=== PATIENT | female | born 1970 | race Caucasian/White ===

== ENCOUNTER 2020-03-25 12:43 | Emergency (ER) | payer BC, OTHER ==
[~2020-03-25] VITALS: Ht 170 cm; Wt 74.8 kg
[~2020-03-25 12:43] MED LIST: OMEP20CA18 PO
[2020-03-25] MEDS ORDERED: ALBU90AE2 (13:07)
[2020-03-25] MEDS ORDERED: METH4TAB10 (13:07)
[2020-03-25 13:14] VITALS: BP 123/69
[2020-03-25 13:14] LABS: BASOPHILS % (AUTO) 0 % (0-10); EOSINOPHILS # (AUTO) 0.2 10^3/uL (0.0-0.3); EOSINOPHILS % (AUTO) 2 % (0-10); HEMATOCRIT 34 % (35-52); HEMOGLOBIN 10.8 G/DL (11.5-16.0); LYMPHOCYTES # (AUTO) 2.3 X 10^3 (1.0-4.0); LYMPHOCYTES % (AUTO) 28 % (12-44); MEAN CORPUSCULAR HEMOGLOBIN 25 PG (25-34); MEAN CORPUSCULAR HGB CONC 32 G/DL (32-36); MEAN CORPUSCULAR VOLUME 78 FL (80-99); MEAN PLATELET VOLUME 8.6 FL (7.4-10.4); MONOCYTES # (AUTO) 0.6 X 10^3 (0.0-1.0); MONOCYTES % (AUTO) 8 % (0-12); NEUTROPHILS % (AUTO) 62 % (42-75); PLATELET COUNT 547 10^3/uL (130-400); RED CELL DISTRIBUTION WIDTH 18.1 % (10.0-14.5); WHITE BLOOD COUNT 8.1 10^3/uL (4.3-11.0)
[2020-03-25] MEDS ORDERED: ASPIRIN 81 MG CHEW (CHILDREN'S ASA) PO ONE (13:15)
[2020-03-25] MEDS ORDERED: NITROGLYCERIN 0.4 MG SL TABS BTL 25'S SL PRN (13:15)
[2020-03-25 13:19] VITALS: BP 87/45
[2020-03-25 13:19] LABS: PROTHROMBIN TIME PATIENT 13.1 SEC (12.2-14.7)
[2020-03-25 13:20] LABS: ALBUMIN 4.3 GM/DL (3.2-4.5); CHLORIDE 105 MMOL/L (98-107); POTASSIUM 3.8 MMOL/L (3.6-5.0); SODIUM 141 MMOL/L (135-145)
[2020-03-25 13:22] LABS: CALCIUM 9.2 MG/DL (8.5-10.1)
[2020-03-25 13:23] LABS: GLUCOSE 95 MG/DL (70-105)
[2020-03-25] MEDS ORDERED: NS IV 1000 ML 1,000 ML IV ONE (13:23)
[2020-03-25 13:24] LABS: CARBON DIOXIDE 28 MMOL/L (21-32)
[2020-03-25] MEDS ORDERED: NS IV 1000 ML 1,000 ML ONE (13:24)
[2020-03-25 13:25] LABS: BILIRUBIN,TOTAL 0.2 MG/DL (0.1-1.0)
[2020-03-25 13:26] LABS: ALKALINE PHOSPHATASE 44 U/L (40-136); CREATININE SERUM 0.77 MG/DL (0.60-1.30); GFR ESTIMATED > 60
[2020-03-25 13:28] LABS: BUN/CREATININE RATIO 14
[2020-03-25 13:29] LABS: ALANINE AMINOTRANSFERASE 16 U/L (0-55); MAGNESIUM 2.3 MG/DL (1.6-2.4)
[2020-03-25 13:30] VITALS: BP 103/56
[2020-03-25] MEDS ORDERED: ONDANSETRON 4 MG/2 ML (SDV) Z0FRAN IVP ONE (13:30)
--- NOTE | 2020-03-25 13:34 | ED Chest Pain ---
General Chief Complaint: Chest Pain Stated Complaint: CP Nursing Triage Note: pt presents to ed with complaints of l sided cp pain she describes as pressure x 3-4 days. Pt also reports l arm numbness. Pt denies fever, cough, soa. Nursing Sepsis Screen: No Definite Risk Source: patient Exam Limitations: no limitations History of Present Illness Date Seen by Provider: Mar 25, 2020 Time Seen by Provider: 13:00 Initial Comments This 50-year-old woman presents to the emergency room with complaints of left- sided chest pressure rated as 5/10. This pain has been present for 3-4 days. She does not identify any alleviating or exacerbating factors. Today she developed a numbness in her entire left upper extremity which concerned her and caused her to present to the emergency room. She smokes and has a family history of heart disease. She reports her sister recently had a stent placed and she is approximately age 51. She denies cough, fever, or shortness of breath. She has no prior history of heart disease but has not had any cardiac workup in the past. She reports recently having a chest CT has a neoplastic screening tool. Allergies and Home Medications Allergies Coded Allergies: No Known Drug Allergies (Unverified , 03/25/20) Home Medications Omeprazole 20 Mg Capsule.dr, 20 MG PO BID Prescribed by: MARCELLO CALVERT on 09/16/16 0158 Patient Home Medication List Home Medication List Reviewed: Yes Review of Systems Review of Systems Constitutional: no symptoms reported EENTM: No Symptoms Reported Respiratory: No Symptoms Reported Cardiovascular: See HPI Gastrointestinal: No Symptoms Reported Genitourinary: No Symptoms Reported Musculoskeletal: no symptoms reported Skin: no symptoms reported Psychiatric/Neurological: See HPI Endocrine: No Symptoms Reported Hematologic/Lymphatic: No Symptoms Reported Past Txubjgg-Owockf-Yihlcx Hx Past Med/Social Hx: Reviewed Nursing Past Med/Soc Hx Patient Social History Alcohol Use: Rarely Uses Recreational Drug Use: No Smoking Status: Current Everyday Smoker Type Used: Cigarettes Recent Foreign Travel: No Contact w/Someone Who Travel: No Recent Infectious Disease Expo: No Recent Hopitalizations: No Physical Abuse: No Sexual Abuse: No Mistreated: No Fear: No Immunizations Up To Date Tetanus Booster (TDap): More than 5yrs Seasonal Allergies Seasonal Allergies: No Past Medical History Surgeries: Yes Tonsillectomy, Tubal Ligation Respiratory: No Cardiac: No Neurological: No Reproductive Disorders: No Gastrointestinal: No Musculoskeletal: No Endocrine: No HEENT: No Cancer: No Psychosocial: No Blood Disorders: No Adverse Reaction/Blood Tranf: No Family Medical History No Pertinent Family Hx Physical Exam Vital Signs Vital Signs - First Documented 03/25/20 12:56 Temp 37.1 Pulse 78 Resp 18 B/P (MAP) 141/78 (99) Pulse Ox 100 O2 Delivery Room Air Capillary Refill : Less Than 3 Seconds Height, Weight, BMI Height: 5'5" Weight: 160lbs. oz. 72.469852ct; 25.00 BMI Method:Stated General Appearance: No Apparent Distress, WD/WN HEENT: PERRL/EOMI, Normal ENT Inspection Neck: Normal Inspection; No JVD Respiratory: Chest Non Tender, Lungs Clear, Normal Breath Sounds, No Accessory Muscle Use, No Respiratory Distress Cardiovascular: Regular Rate, Rhythm, No Edema, No Murmur, Normal Peripheral Pulses Gastrointestinal: Non Tender, Soft Extremity: Normal Capillary Refill, Normal Inspection, Normal Range of Motion, Non Tender Neurologic/Psychiatric: Alert, Oriented x3, No Motor/Sensory Deficits, Normal Mood/Affect, oven dauber II-XII Norm as Tested Skin: Normal Color, Warm/Dry Progress/Results/Core Measures Results/Orders Lab Results Laboratory Tests Test 03/25/20 12:54 03/25/20 14:15 03/25/20 14:57 Range/Units White Blood Count 8.1 4.3-11.0 10^3/uL Red Blood Count 4.37 4.35-5.85 10^6/uL Hemoglobin 10.8 L 11.5-16.0 G/DL Hematocrit 34 L 35-52 % Mean Corpuscular Volume 78 L 80-99 FL Mean Corpuscular Hemoglobin 25 25-34 PG Mean Corpuscular Hemoglobin Concent 32 32-36 G/DL Red Cell Distribution Width 18.1 H 10.0-14.5 % Platelet Count 547 H 130-400 10^3/uL Mean Platelet Volume 8.6 7.4-10.4 FL Neutrophils (%) (Auto) 62 42-75 % Lymphocytes (%) (Auto) 28 12-44 % Monocytes (%) (Auto) 8 0-12 % Eosinophils (%) (Auto) 2 0-10 % Basophils (%) (Auto) 0 0-10 % Neutrophils # (Auto) 5.0 1.8-7.8 X 10^3 Lymphocytes # (Auto) 2.3 1.0-4.0 X 10^3 Monocytes # (Auto) 0.6 0.0-1.0 X 10^3 Eosinophils # (Auto) 0.2 0.0-0.3 10^3/uL Basophils # (Auto) 0.0 0.0-0.1 10^3/uL Prothrombin Time 13.1 12.2-14.7 SEC INR Comment 1.0 0.8-1.4 Activated Partial Thromboplast Time 32 24-35 SEC Sodium Level 141 135-145 MMOL/L Potassium Level 3.8 3.6-5.0 MMOL/L Chloride Level 105 98-107 MMOL/L Carbon Dioxide Level 28 21-32 MMOL/L Anion Gap 8 5-14 MMOL/L Blood Urea Nitrogen 11 7-18 MG/DL Creatinine 0.77 0.60-1.30 MG/DL Estimat Glomerular Filtration Rate > 60 BUN/Creatinine Ratio 14 Glucose Level 95 70-105 MG/DL Calcium Level 9.2 8.5-10.1 MG/DL Corrected Calcium 9.0 8.5-10.1 MG/DL Magnesium Level 2.3 1.6-2.4 MG/DL Total Bilirubin 0.2 0.1-1.0 MG/DL Aspartate Amino Transf (AST/SGOT) 12 5-34 U/L Alanine Aminotransferase (ALT/SGPT) 16 0-55 U/L Alkaline Phosphatase 44 40-136 U/L Myoglobin 16.3 10.0-92.0 NG/ML Troponin I < 0.028 < 0.028 <0.028 NG/ML Total Protein 7.0 6.4-8.2 GM/DL Albumin 4.3 3.2-4.5 GM/DL My Orders Orders - MARCELLO PERKINS MD Cbc With Automated Diff (03/25/20 13:06) Magnesium (03/25/20 13:06) Chest 1 View, Ap/Pa Only (03/25/20 13:06) Ekg Tracing (03/25/20 13:06) Comprehensive Metabolic Panel (03/25/20 13:06) Myoglobin Serum (03/25/20 13:06) Protime With Inr (03/25/20 13:06) Partial Thromboplastin Time (03/25/20 13:06) O2 (03/25/20 13:06) Monitor-Rhythm Ecg Trace Only (03/25/20 13:06) Lipid Panel (03/26/20 06:00) Ed Iv/Invasive Line Start (03/25/20 13:06) Nitroglycerin 0.4 Mg Btl 25's (Nitrostat (03/25/20 13:15) Aspirin Chewable Tablet (Baby Aspirin Ch (03/25/20 13:15) Troponin I (03/25/20 12:54) Ondansetron Injection (Zofran Injectio (03/25/20 13:30) Ns Iv 1000 Ml (Sodium Chloride 0.9%) (03/25/20 13:23) Ns Iv 1000 Ml (Sodium Chloride 0.9%) (03/25/20 13:24) Troponin I (03/25/20 15:00) Coronavirus Sars-Cov-2 So 2018 (03/25/20 14:14) Medications Given in ED Current Medications Medications Dose Ordered Sig/Mike Route Start Time Stop Time Status Last Admin Dose Admin Aspirin 243 mg ONCE ONCE PO 03/25/20 13:15 03/25/20 13:16 DC 03/25/20 13:13 243 MG Nitroglycerin 0.4 mg UD PRN SL 03/25/20 13:15 03/25/20 13:14 0.4 MG Ondansetron HCl 8 mg ONCE ONCE IVP 03/25/20 13:30 03/25/20 13:31 DC 03/25/20 13:30 8 MG Sodium Chloride 1,000 ml @ 0 mls/hr Q0M ONCE IV 03/25/20 13:23 03/25/20 13:25 DC 03/25/20 13:30 1,000 MLS/HR Vital Signs/I&O 03/25/20 03/25/20 03/25/20 03/25/20 12:56 12:56 13:14 13:19 Temp 37.1 Pulse 78 83 81 Resp 18 20 13 B/P (MAP) 141/78 (99) 123/69 (87) 87/45 (59) Pulse Ox 100 98 95 O2 Delivery Room Air Room Air 03/25/20 13:30 Pulse 78 Resp 20 B/P (MAP) 103/56 (72) Pulse Ox 96 Blood Pressure Mean: 99 Progress Progress Note #1: Time: 13:54 Progress Note EKG was unremarkable. Aspirin 243 mg and nitroglycerin were administered. Patient had immediate relief of chest pressure and the paresthesias in her left upper extremity resolved. They remain resolved at this time. Patient did become hypotensive and nauseated after nitroglycerin. IV normal saline was initiated and Zofran was given. Progress Note #2: Time: 14:42 Progress Note Case was reviewed with Dr. Kellogg. Since patient remains pain free and workup was unremarkable, we plan to discharge after 2 hour rule out. Outpatient stress testing or angiography can then be arranged. Progress Note #3: Progress Note Patient remained free of any further pain or pressure. Repeat troponin was negative. She was discharged home and will follow-up with her new primary care provider, Dr. Swain, in [place]. She will also arrange follow-up with Dr. Kellogg. See discharge instructions. Initial ECG Impression Date: Mar 25, 2020 Initial ECG Impression Time: 12:43 Initial ECG Rate: 83 Initial ECG Rhythm: Normal Sinus Initial ECG Intervals: Normal Initial ECG Impression: Normal Comment Normal sinus rhythm with no ST elevation or depression. No abnormal intervals or axis deviation. Diagnostic Imaging Diagonstic Imaging: Xray Plain Films/CT/US/NM/MRI: chest Comments Chest x-ray viewed by me and report reviewed. See report below: NAME: [facility] REC#: [id number] PT STATUS: REG ER : 1970 PHYSICIAN: MARCELLO PERKINS MD ADMIT DATE: 03/25/20/ER Draft Date of Exam:03/25/20 CHEST 1 VIEW, AP/PA ONLY INDICATION: Chest pain. Time of exam 1:43 PM No prior studies are available for comparison. The heart size is normal. The pulmonary vascularity is unremarkable. The lungs are clear. No infiltrate, effusion or pneumothorax is detected. Impression: No acute cardiopulmonary process is detected. Dictated on workstation # [id number] Dict: 03/25/20 1354 Trans: 03/25/20 1355 BANNER [id number] Interpreted by: LIOR LAWRENCE MD Departure Impression Primary Impression: Chest pain Qualified Codes: R07.9 - Chest pain, unspecified Additional Impression: Paresthesia of left arm Disposition: 01 HOME, SELF-CARE Condition: Improved Departure-Patient Inst. Decision time for Depature: 14:23 Referrals: NO,LOCAL PHYSICIAN (PCP) Primary Care Physician DOM KELLOGG MD Patient Instructions: Chest Pain (DC) Add. Discharge Instructions: Keep your follow-up appointment with your primary care provider. Additionally, call Dr. Kellogg's office to arrange follow-up for stress test or heart catheter. Take aspirin 81 mg daily. Return to the emergency room if you have worsening symptoms including return of persistent chest pressure, shortness of breath, etc. Isolate at home until the results of your COVID 19 test are known. All discharge instructions reviewed with patient and/or family. Voiced understanding. Work/School Note: Work Release Form Date Seen in the Emergency Department: Mar 25, 2020 Return to Work: Mar 27, 2020 Restrictions: Return-No Fever (24hrs) Other Restrictions Listed Below: Return to work if COVID19 screening is negative. Copy Copies To 1: DOM KELLOGG MD, JOSHUA T MD Mar 25, 2020 13:34
--- NOTE | 2020-03-25 13:55 | Diagnostic Imaging Report ---
INDICATION: Chest pain. Time of exam 1:43 PM No prior studies are available for comparison. The heart size is normal. The pulmonary vascularity is unremarkable. The lungs are clear. No infiltrate, effusion or pneumothorax is detected. Impression: No acute cardiopulmonary process is detected. Dictated by: Dictated on workstation # [id number]
--- OUTSIDE RECORDS SUMMARY | 2020-03-25 15:26 | XMS REPORT | Continuity of Care Document ---
Author Organization Unknown Address Unknown Phone Unavailable Allergies Active Description Code Type Severity Reaction Onset Reported/Identified Relationship to Patient Clinical Status Yes No Known Drug Allergies [id number] Drug Allergy Unknown N/A 09/15/2016 Medications There is no data. Problems Date Dx Coded Attending Type Code Diagnosis Diagnosed By 09/16/2016 GREGORIO RODNEY, MARCELLO T Ot F17.210 NICOTINE DEPENDENCE, CIGARETTES, UNCOMPL 09/16/2016 GREGORIO RODNEY, MARCELLO T Ot R10.12 LEFT UPPER QUADRANT PAIN 09/16/2016 GREGORIO RODNEY, MARCELLO T Ot F17.210 NICOTINE DEPENDENCE, CIGARETTES, UNCOMPL 09/16/2016 GREGORIO RODNEY, MARCELLO T Ot R10.12 LEFT UPPER QUADRANT PAIN 09/17/2016 AVEL JUNG [employer] MAK[employer] Ot R10.12 LEFT UPPER QUADRANT PAIN 09/17/2016 AVEL JUNG [employer] Ot R10.32 LEFT LOWER QUADRANT PAIN 09/22/2016 AVEL JUNG [employer] MA[employer] Ot R10.12 LEFT UPPER QUADRANT PAIN 09/22/2016 AVEL JUNG [employer] MAK[employer] Ot R10.32 LEFT LOWER QUADRANT PAIN 10/06/2016 AVEL JUNG [employer] MA[employer] Ot R10.12 LEFT UPPER QUADRANT PAIN 10/06/2016 AVEL JUNG [employer] MA[employer] Ot R10.32 LEFT LOWER QUADRANT PAIN Procedures There is no data. Results Test Result Range Complete urinalysis with reflex to cultu re - 09/15/16 23:31 Urine color determination YELLOW NRG Urine clarity determination CLEAR NR G Urine pH measurement by test strip 6.5 5-9 Specific gravity of urine by test strip 1.010 1.016-1.022 Urine protein assay by test strip, semi-quantitative NEGATIVE NEGATIVE Urine glucose detection by automated test strip NE GATIVE NEGATIVE Erythrocytes detection in urine sediment by light micr oscopy 2+ NEGATIVE Urine ketones detection by automated test strip NE GATIVE NEGATIVE Urine nitrite detection by test strip NEGATIVE NEGATIVE Urine total bilirubin detection by test strip NEGA TIVE NEGATIVE Urine urobilinogen measurement by automated test strip (mass/volume) NORMAL NORMAL Urine leukocyte esterase detection by dipstick 2+ NEGATIVE Automated urine sediment erythrocyte cou nt by microscopy (number/high power field) RARE NRG Automated urine sediment leukocyte count by microscopy (number/high power field) [HPF] NRG Bacteria detection in urine sediment by light microsco py TRACE NRG Squamous epithelial cells detection in u rine sediment by light microscopy 0-2 NRG Crystals detection in urine sediment by light microsco py NONE NRG Casts detection in urine sediment by light microscopy NONE NRG Mucus detection in urine sediment by light microscopy NEGATIVE NRG Complete urinalysis with reflex to culture NO NRG Complete blood count (CBC) with automate d white blood cell (WBC) differential - 09/16/16 00:46 Blood leukocytes automated count (number/volume) 9.9 10*3/uL 4.3-11.0 Blood erythrocytes automated count (number/volume) 4.60 10*6/uL 4.35-5.85 Venous blood hemoglobin measurement (mass/volume) 10.9 g/dL 11.5-16.0 Blood hematocrit (volume fraction) 35 % 35-52 Automated erythrocyte mean corpuscular volume 75 [ foz_us] 80-99 Automated erythrocyte mean corpuscular h emoglobin (mass per erythrocyte) 24 pg 25-34 Automated erythrocyte mean corpuscular h emoglobin concentration measurement (mass/volume) 32 g/dL 32-36 Automated erythrocyte distribution width ratio 17. 1 % 10.0- 14.5 Automated blood platelet count (count/volume) 533 10*3/uL 130-400 Automated blood platelet mean volume measurement 8.3 [foz_us] 7.4-10.4 Automated blood neutrophils/100 leukocytes 67 % 42-75 Automated blood lymphocytes/100 leukocytes 26 % 12-44 Blood monocytes/100 leukocytes 6 % 0-12 Automated blood eosinophils/100 leukocytes 2 % 0-10 Automated blood basophils/100 leukocytes 0 % 0-10 Blood neutrophils automated count (number/volume) 6.6 10*3 1.8-7.8 Blood lymphocytes automated count (number/volume) 2.5 10*3 1.0-4.0 Blood monocytes automated count (number/volume) 0. 6 10*3 0.0-1.0 Automated eosinophil count 0.2 10*3/uL 0 .0-0.3 Automated blood basophil count (count/volume) 0.0 10*3/uL 0.0-0.1 Comprehensive metabolic panel - 09/16/16 00:46 Serum or plasma sodium measurement (moles/volume) 139 mmol/L 135-145 Serum or plasma potassium measurement (moles/volume) 4.4 mmol/L 3.6-5.0 Serum or plasma chloride measurement (moles/volume) 106 mmol/L 98-107 Carbon dioxide 28 mmol/L 21-32 Serum or plasma anion gap determination (moles/volume) 5 mmol/L 5-14 Serum or plasma urea nitrogen measurement (mass/volume ) 11 mg/dL 7-18 Serum or plasma creatinine measurement (mass/volume) 0.75 mg/dL 0.60-1.30 Serum or plasma urea nitrogen/creatinine mass ratio 15 NRG Serum or plasma creatinine measurement w ith calculation of estimated glomerular filtration rate > NRG Serum or plasma glucose measurement (mass/volume) 100 mg/dL 70-105 Serum or plasma calcium measurement (mass/volume) 9.2 mg/dL 8.5-10.1 Serum or plasma total bilirubin measurement (mass/volu me) 0.2 mg/dL 0.1-1.0 Serum or plasma alkaline phosphatase tracee surement (enzymatic activity/volume) 52 U/L 40-136 Serum or plasma aspartate aminotransfera se measurement (enzymatic activity/volume) 13 U/L 5-34 Serum or plasma alanine aminotransferase measurement (enzymatic activity/volume) 22 U/L 0-55 Serum or plasma protein measurement (mass/volume) 6.7 g/dL 6.4-8.2 Serum or plasma albumin measurement (mass/volume) 4.2 g/dL 3.2-4.5 Lipase - 09/16/16 00:46 Lipase 16 U/L 8-78 Serum or plasma C reactive protein measu rement (mass/volume) - 09/16/16 00:46 Serum or plasma C reactive protein measurement (mass/v olume) 0.20 mg/dL 0.00-0.50 Encounters ACCT No. Visit Date/Time Discharge Status Pt. Type Provider Facility Loc./Unit Complaint [id number] 09/16/2016 15:06:00 016 23:59:59 CLS Outpatient AVEL JUNG APRN [facility] RAD LUQ,LLQ PAIN,BLOATING/ GAS [id number] 09/15/2016 23:22:00 02:07:00 DIS Emergency GREGORIO RODNEY, MARCELLO Phillips [facility] ER PRESSURE ON LEF T SIDE
--- OUTSIDE RECORDS SUMMARY | 2020-03-25 15:26 | XMS REPORT ---
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 [employer] [facility] Address [address] [place] [address] Care Team Providers Care R D Manager Name Role Phone AVEL JUNG PROVIDER ENROLLMENT SPECIALIST Unavailable Unavailable GREGORIO RODNEY, MARCELLO Phillips Unavailable Unavailable Unavailable Unavailable Allergies Normalized Allergy Reported Date of Reaction(s) Care Provider Facility Allergy Type classification allergen Allergy Onset DA (2 Unclassified No Known Drug 09-15-2016 - no information MARCELLO Not Available sources.) Allergies GREGORIO ([id number]) Medications No Information Problems Active Problems Problem Normalized Date Last Normalized Normalized Provider Fa cility Classification Problem(s) Recorded Problem Problem Sta tus Duration Substance-rela Nicotine Chronic Active MARCELLO Not Avai lable bessy disorders dependence, GREGORIO , ([id number]) (1 source.) cigarettesMD uncomplicated Past or Other Problems Problem Normalized Date Last Normalized Normalized Provider Fa cility Classification Problem(s) Recorded Problem Problem Sta tus Duration Abdominal pain Left upper Episodic Completed MARCELLO Not Av ailable (4 sources.) quadrant pain GREGORIO , ([id number]) Translations: [ LEFT LOWER QUADRANT PAIN] Procedures No Information Immunizations No Information Results No Information Vital Signs No Information Interventions No Information Plan of Treatment No Information Goals No Information Social History No Information Functional Status No Information Mental Status No Information Encounters Encounter Normalized Encounter Encounter Diagnosis Care Provi gregoria Organization Date Type 09-16-2016 Emergency department no information no name no organization name - patient visit 09-16-2016 09-16-2016 Patient encounter no information no name no or ganization name procedure Medical Equipment No Information Payers No Information Additional Source Comments This clinical document has been generated using iNeed software that has been certified by the Office of the National Coordinator for Health Information Technology (ONC 15.99.04.3023.Diam.31.00.0.877513) and the National Committee for [employer] (NCQA, as an eMeasure certified technology). FOR RECORDS PERTAINING TO PATIENTS WHO ARE OR HAVE BEEN ENROLLED IN A CHEMICAL D EPENDENCY/SUBSTANCE ABUSE PROGRAM, SOME INFORMATION MAY BE OMITTED. This clinica l summary was aggregated from multiple sources. Caution should be exercised in using it in the provision of clinical care. This summary normalizes information from multiple sources, and as a consequence, information in this document may ma terially change the coding, format and clinical context of patient data. In derrick tion, data may be omitted in some cases. CLINICAL DECISIONS SHOULD BE BASED ON T HE PRIMARY CLINICAL RECORDS. [employer] [facility]. provides no warranty or guara ntee of the accuracy or completeness of information in this document.The followi information is based on time limited clinical information
[2020-03-25 15:50] VITALS: BP 122/63
== END 2020-03-25 15:55 | disposition home or self-care (01) ==
LOC: EDUNIT# 12:44 → ER 12:45
DX: R07.89 Other chest pain (principal); R20.2 Paresthesia of skin; F17.210 Nicotine dependence, cigarettes, uncomplicated; Z20.828 Contact with and (suspected) exposure to other viral communicable diseases; Z82.49 Family history of ischemic heart disease and other diseases of the circulatory system
CPT/HCPCS: 71045; 80053; 83735; 83874; 84484; 85025; 85610; 85730; 93041; 99284; U0002; 36415; 87635; 93005; 96361; 96374

== ENCOUNTER → 2020-04-02 | Outpatient (CLI) | payer BC ==
[~2020-04-02] VITALS: Ht 170 cm; Wt 77.0 kg
[~2020-04-02] MED LIST changes: +ALBU90AE2; +CATHETER FLUSH 10 ML SYR IV PRN; +METH4TAB10; +REGADENOSON 0.4 MG/5 ML SYR (LEXISCAN) IV ONE
[2020-04-02 12:56] VITALS: BP 131/63
--- NOTE | 2020-04-02 15:04 | Cardiology Stress Test Report ---
Stress Test Report Date of Procedure/Referring: Date of Procedure: Apr 02, 2020 PCP Dom Kellogg MD Admitting Physician No,Local Physician Indications: Chest pain Baseline Heart Rate: 72 Baseline Blood Pressure: Blood Pressure Systolic: 131 Blood Pressure Diastolic: 63 Baseline EKG: Baseline EKG: normal sinus rhythm Summary After explaining the procedure to the patient, she signed a consent and then brought to the stress nuclear laboratory. Patient received 0.4 mg Lexiscan for stress test, ECG, heart rate and blood pr essure were monitored continuously. Resting and stress dose of radio tracer were injected, imaging was acquired and reviewed in short axis, horizontal long axis and vertical long axis views. TID 0.97 SSS: 0 SDS: 0 EF: 59 1. Patient tolerated Lexiscan well 2. Baseline sinus rhythm with normal EKG 3. Breast attenuation with mild decrease uptake at the apex, no significant ischemia or infarction on SPECT images 4. Normal LV size with EF 59 percent DOM KELLOGG MD Apr 02, 2020 15:04
== END ==
LOC: CARD 10:32
PROVIDERS: ATTEND Internal Medicine Cardiovascular Disease
DX: R07.9 Chest pain, unspecified (principal); R06.00 Dyspnea, unspecified; Z72.0 Tobacco use
CPT/HCPCS: 78452; 93017; 93306; A9502

== ENCOUNTER 2020-04-09 05:34 | Outpatient (RCR) | payer BC ==
[~2020-04-09] VITALS: Ht 170 cm; Wt 76.3 kg
[~2020-04-09 05:34] MED LIST changes: -CATHETER FLUSH 10 ML SYR IV PRN; -REGADENOSON 0.4 MG/5 ML SYR (LEXISCAN) IV ONE
== END 2020-04-09 09:16 | disposition home or self-care (01) ==
LOC: PREOP 05:34
PROVIDERS: ATTEND Surgery
DX: Z01.812 Encounter for preprocedural laboratory examination (principal); R49.0 Dysphonia; Z20.828 Contact with and (suspected) exposure to other viral communicable diseases; Z87.891 Personal history of nicotine dependence
CPT/HCPCS: 87635

== ENCOUNTER 2020-04-11 13:23 | Day surgery (SDC) | payer BC ==
[~2020-04-11] VITALS: Ht 170 cm; Wt 76.3 kg
[2020-04-11] MEDS ORDERED: LACTATED RINGERS 1,000 ML IV ONE (13:27)
[2020-04-11 13:30] VITALS: BP 128/75
[2020-04-11] MEDS ORDERED: LIDOCAINE JELLY 2% 6 ML SYRINGE MM PRN (13:30)
[2020-04-11] MEDS ORDERED: HURRICAINE EXT TUBE (BENZOCAINE) XX PRN (13:30)
[2020-04-11] MEDS ORDERED: LACTATED RINGERS 1,000 ML IV PRN (13:30)
[2020-04-11] MEDS ORDERED: PROPOFOL INJECTION 50 ML IV ONE (14:08)
[2020-04-11] MEDS ORDERED: MIDAZOLAM 2 MG/2 ML (VERSED) VIAL ONE (14:08)
[2020-04-11] MEDS ORDERED: proPOfol 200 MG/20 ML (DIPRIVAN) VIAL IV ONE (14:08)
[2020-04-11] MEDS ORDERED: HURRICAINE EXT TUBE (BENZOCAINE) ONE (14:23)
[2020-04-11] MEDS ORDERED: LIDOCAINE JELLY 2% 6 ML SYRINGE ONE (14:23)
[2020-04-11] MEDS ORDERED: ONDANSETRON 4 MG/2 ML (SDV) Z0FRAN IVP PRN (14:30)
[2020-04-11] MEDS ORDERED: ACETAMINOPHEN 325 MG TABLET PO PRN (14:30)
[2020-04-11] MEDS ORDERED: morphine INJ 10 MG/ML 1ML (SYR OR VIAL) IVP PRN ×2 (14:30)
[2020-04-11] MEDS ORDERED: HYDROcodone/APAP 5 MG/325 MG (LORTAB) TAB PO PRN (14:30)
--- NOTE | 2020-04-11 14:30 | Progress Note-Pre Operative ---
Pre-Operative Progress Note H&P Reviewed The H&P was reviewed, patient examined and no changes noted. Date Seen by Provider: Apr 11, 2020 Time Seen by Provider: 14:00 Date H&P Reviewed: Apr 11, 2020 Time H&P Reviewed: 14:00 Pre-Operative Diagnosis: GERD, dysphagia MAYLIN CHEN MD Apr 11, 2020 14:30
--- NOTE | 2020-04-11 14:31 | Discharge Inst-Surgical ---
D/C Lap Instructions-KIDMg New, Converted, or Re-Newed RX: RX on Chart Follow Up Activity as tolerated High Fiber Diet 25g or more per day Avoid Alcohol, Caffeine, Spicy Enlow and Acid foods. Drink 64 fluid oz or more of fluids per day. Symptoms to Report: Fever over 101 degree F, Nausea/Vomiting If any problems/questions: Contact your physician or go to Emergency Room MAYLIN CHEN MD Apr 11, 2020 14:31
--- NOTE | 2020-04-11 14:53 | Anesthesia-General Post-Op ---
MAC Patient Condition Mental Status/LOC: Same as Preop Cardiovascular: Satisfactory Nausea/Vomiting: Absent Respiratory: Satisfactory Pain: Controlled Complications: Absent Post Op Complications Complications None Follow Up Care/Instructions Patient Instructions None needed. Anesthesiology Discharge Order Discharge Order Patient is doing well, no complaints, stable vital signs, no apparent adverse anesthesia problems. No complications reported per nursing. DEBORAH CISNEROS CRNA Apr 11, 2020 14:53
[2020-04-11 14:55] VITALS: BP 111/59
[2020-04-11 15:00] VITALS: BP 107/62
[2020-04-11 15:04] VITALS: BP 106/58
--- NOTE | 2020-04-11 15:06 | Progress Note-Post Operative ---
Post-Operative Progess Note Surgeon (s)/Geoint Analyst (s) Surgeon MAYLIN CHEN MD Geoint Analyst: none Pre-Operative Diagnosis GERD, dysphagia Post-Operative Diagnosis reflux esophagitis(stage 2), small-moderate HH(2.5cm), moderate gastritis. Procedure & Operative Findings Date of Procedure 04/11/20 Procedure Performed/Findings EGD with bx. Anesthesia Type mac Estimated Blood Loss Estimated blood loss (mL): minimal Specimens/Packing Specimens Removed ge jxn, antrum MAYLIN CHEN MD Apr 11, 2020 15:06
[2020-04-11 15:15] VITALS: BP 106/64
[2020-04-11 15:28] VITALS: BP 106/64
--- NOTE | 2020-04-12 00:17 | OPERATIVE REPORT ---
DATE OF SERVICE: 04/11/2020 ATTENDING PRIMARY CARE PHYSICIAN: . PREOPERATIVE DIAGNOSIS: Epigastric and chest pain. POSTOPERATIVE DIAGNOSES: 1. Reflux esophagitis stage II. 2. Small to moderate size hiatal hernia approximately 2.5 cm in size. 3. Moderate gastritis. PROCEDURE: EGD with biopsy. SURGEON: Maylin Chen MD ANESTHESIA: Monitored anesthesia care. ESTIMATED BLOOD LOSS: Minimal. FINDINGS: 1. Reflux esophagitis stage II. 2. Small to moderate size hiatal hernia approximately 2.5 cm in size. 3. Moderate gastritis. DISPOSITION: The patient tolerated the procedure well. INDICATIONS: The patient is a 50-year-old female who has had issues with hoarseness for the past several months and also did have left arm numbness and was seen by cardiology and a stress test performed. She states that there were no cardiac issues identified. She does have risk factors for significant reflux including smoking history of 30-pack years. She does not report any hematemesis, no coffee ground emesis. DESCRIPTION OF PROCEDURE: The patient was brought to the endoscopy suite, laid in the left lateral decubitus position. After adequate IV pain and stated medications and monitored anesthesia care, the mouthpiece was applied. The endoscope was placed in the mouth, visualizing the pharynx and hypopharyngeal region. Vocal cords, epiglottis and vallecula identified and appeared to be normal. Endoscope was then gently intubated into the esophageal opening and esophagus insufflated. The endoscope was then advanced to the first, second and third portions of the esophagus to the level of GE junction, reflux esophagitis stage II identified. The GE junction was also intrathoracic consistent with a hiatal hernia. A biopsy was taken with forceps with visualization of good hemostasis. The endoscope was then advanced into the stomach and endoscope retroflexed, visualizing a small to moderate size hiatal hernia approximately 2.5 cm in size. There was also a moderate gastritis more towards the stomach antrum. A biopsy was taken of the antrum to rule out H. pylori with visualization of good hemostasis. The endoscope was then advanced to the pylorus and the first and second portions of the duodenum, which appeared normal with no distal obstructions. The endoscope was then slowly withdrawn while taking a second look and suctioning of residual air with no additional findings. The patient tolerated the procedure well. We will recommend the necessary lifestyle and diet accommodation including smoking cessation as well as avoidance of caffeinated beverages, spicy, greasy and acidic foods as well as taking in small and more frequent meals, avoidance of eating at night as well as head elevation while lying supine. 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 for the next 2 weeks and then on a p.r.n. basis. Job ID: [id number] DocumentID: [id number] Dictated Date: 04/11/2020 14:55:13 Underwriting Analyst Date: 04/12/2020 00:16:36 Dictated By: MAYLIN CHEN MD
== END 2020-04-11 15:30 | disposition home or self-care (01) ==
LOC: ENDO 13:23
PROVIDERS: ATTEND Surgery
DX: K21.0 Gastro-esophageal reflux disease with esophagitis (principal); K29.60 Other gastritis without bleeding; K44.9 Diaphragmatic hernia without obstruction or gangrene; R49.0 Dysphonia; J45.909 Unspecified asthma, uncomplicated; Z79.899 Other long term (current) drug therapy; F17.210 Nicotine dependence, cigarettes, uncomplicated

== ENCOUNTER 2021-05-27 18:55 | Day surgery (SDC) | payer BC ==
[~2021-05-27] VITALS: Ht 167 cm; Wt 74.0 kg
[2021-05-27 20:12] LABS: BASOPHILS % (AUTO) 0 % (0-10); EOSINOPHILS # (AUTO) 0.1 10^3/uL (0.0-0.3); EOSINOPHILS % (AUTO) 1 % (0-10); HEMATOCRIT 36 % (35-52); HEMOGLOBIN 11.6 g/dL (11.5-16.0); LYMPHOCYTES % (AUTO) 10 % (12-44); MEAN CORPUSCULAR HEMOGLOBIN 26 pg (25-34); MEAN CORPUSCULAR HGB CONC 32 g/dL (32-36); MEAN CORPUSCULAR VOLUME 81 fL (80-99); MEAN PLATELET VOLUME 8.7 fL (9.0-12.2); MONOCYTES # (AUTO) 1.1 10^3/uL (0.0-1.0); MONOCYTES % (AUTO) 6 % (0-12); NEUTROPHILS # (AUTO) 15.6 10^3/uL (1.8-7.8); NEUTROPHILS % (AUTO) 83 % (42-75); PLATELET COUNT 475 10^3/uL (130-400); WHITE BLOOD COUNT 18.9 10^3/uL (4.3-11.0)
[2021-05-27 20:15] LABS: ALBUMIN 4.5 GM/DL (3.2-4.5); POTASSIUM 4.6 MMOL/L (3.6-5.0)
[2021-05-27] MEDS ORDERED: LIDOCAINE 2% VISCOUS 15 ML UDC PO ONE (20:15)
[2021-05-27] MEDS ORDERED: ANTACID SUSP 30 ML UDC (MYLANTA) PO ONE (20:15)
[2021-05-27] MEDS ORDERED: ONDANSETRON 4 MG/2 ML (SDV) Z0FRAN IVP ONE (20:15)
[2021-05-27 20:16] LABS: CALCIUM 9.8 MG/DL (8.5-10.1)
[2021-05-27 20:17] LABS: TOTAL PROTEIN 7.5 GM/DL (6.4-8.2)
[2021-05-27 20:19] LABS: BILIRUBIN,TOTAL 0.3 MG/DL (0.1-1.0)
[2021-05-27 20:21] LABS: CREATININE SERUM 0.77 MG/DL (0.60-1.30)
[2021-05-27 20:23] LABS: BILIRUBIN,URINE NEGATIVE (NEGATIVE); CLARITY,URINE CLEAR; COLOR,URINE YELLOW; GLUCOSE, URINE (UA) NEGATIVE (NEGATIVE); KETONES,URINE NEGATIVE (NEGATIVE); LEUKOCYTE ESTERASE ,URINE NEGATIVE (NEGATIVE); NITRITE,URINE NEGATIVE (NEGATIVE); PROTEIN,URINE NEGATIVE (NEGATIVE)
--- NOTE | 2021-05-27 20:23 | ED Abdominal Pain ---
General Chief Complaint: Abdominal/GI Problems Stated Complaint: ABDOMINAL PAIN Nursing Triage Note: PT PRESENTS TO ED FOR ABD. PAIN THAT STARTED TODAY. PT REPORTS HAVING HX OF ULCERS. PT IS RATING ABD. PAIN 7/10. PT DOES TAKE OTC MEDICATION FOR ULCERS SOMETIMES WHEN SHE NEEDS THEM. PT AMB. TO ROOM 04 WITHOUT DIFFICULTY. Source of Information: Patient Exam Limitations: No Limitations History of Present Illness Date Seen by Provider: May 27, 2021 Time Seen by Provider: 20:22 Initial Comments To ER with diffuse abdominal pain described as a burning sensation. History of peptic ulcers. Rates pain 7 out of 10. Timing/Duration: 1-2 Days Severity/Quality: Burning Location: Epigastric Radiation: No Radiation Activities at Onset: None Associated Symptoms: Denies Symptoms Allergies and Home Medications Allergies Coded Allergies: No Known Drug Allergies (Unverified , 04/07/20) Patient Home Medication List Home Medication List Reviewed: Yes Review of Systems Review of Systems Constitutional: see HPI EENTM: No Symptoms Reported Respiratory: No Symptoms Reported Cardiovascular: No Symptoms Reported Gastrointestinal: No Symptoms Reported Genitourinary: No Symptoms Reported Musculoskeletal: no symptoms reported Skin: no symptoms reported Psychiatric/Neurological: No Symptoms Reported Endocrine: No Symptoms Reported Hematologic/Lymphatic: No Symptoms Reported Past Dcbciww-Qrpvgo-Ssxnuu Hx Patient Social History Tobacco Use?: Yes Tobacco type used: Cigarettes Smoking Status: Current Everyday Smoker Substance use?: No Alcohol Use?: Yes Alcohol type: Beer Alcohol Frequency: Once in a while Pt feels they are or have been: No Immunizations Up To Date Tetanus Booster (TDap): More than 5yrs First/Initial COVID19 Vaccinat: 01/2021 Second COVID19 Vaccination Armin: 01/2021 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 Surgeries: Yes Tonsillectomy, Tubal Ligation Respiratory: No Cardiac: No Neurological: No Reproductive Disorders: No Sexually Transmitted Disease: No HIV/AIDS: No Genitourinary: No Gastrointestinal: No Musculoskeletal: No Endocrine: No HEENT: Yes (GLASSES) Loss of Vision: Denies Hearing Impairment: Denies Cancer: No Psychosocial: No Integumentary: No Blood Disorders: No Adverse Reaction/Blood Tranf: No (N/A) Family Medical History No Pertinent Family Hx Physical Exam Vital Signs Vital Signs - First Documented 05/27/21 19:45 Temp 36.4 Pulse 79 Resp 18 B/P (MAP) 161/87 (111) O2 Delivery Room Air Capillary Refill : Less Than 3 Seconds Height/Weight/BMI Height: 5'5" Weight: 160lbs. oz. 72.335166vv; 26.00 BMI Method:Stated General Appearance: WD/WN, no apparent distress HEENT: PERRL/EOMI, normal ENT inspection Neck: non-tender, full range of motion Respiratory: no respiratory distress, no accessory muscle use Cardiovascular: regular rate, rhythm, no murmur Gastrointestinal: normal bowel sounds, soft, tenderness Extremities: normal range of motion, non-tender Neurologic/Psychiatric: alert, normal mood/affect, oriented x 3 Skin: normal color, warm/dry Progress/Results/Core Measures Results/Orders Lab Results Laboratory Tests Test 05/27/21 19:50 05/27/21 20:19 Range/Units White Blood Count 18.9 H 4.3-11.0 10^3/uL Red Blood Count 4.51 3.80-5.11 10^6/uL Hemoglobin 11.6 11.5-16.0 g/dL Hematocrit 36 35-52 % Mean Corpuscular Volume 81 80-99 fL Mean Corpuscular Hemoglobin 26 25-34 pg Mean Corpuscular Hemoglobin Concent 32 32-36 g/dL Red Cell Distribution Width 16.8 H 10.0-14.5 % Platelet Count 475 H 130-400 10^3/uL Mean Platelet Volume 8.7 L 9.0-12.2 fL Immature Granulocyte % (Auto) 0 % Neutrophils (%) (Auto) 83 H 42-75 % Lymphocytes (%) (Auto) 10 L 12-44 % Monocytes (%) (Auto) 6 0-12 % Eosinophils (%) (Auto) 1 0-10 % Basophils (%) (Auto) 0 0-10 % Neutrophils # (Auto) 15.6 H 1.8-7.8 10^3/uL Lymphocytes # (Auto) 2.0 1.0-4.0 10^3/uL Monocytes # (Auto) 1.1 H 0.0-1.0 10^3/uL Eosinophils # (Auto) 0.1 0.0-0.3 10^3/uL Basophils # (Auto) 0.0 0.0-0.1 10^3/uL Immature Granulocyte # (Auto) 0.1 0.0-0.1 10^3/uL Neutrophils % (Manual) 84 % Lymphocytes % (Manual) 10 % Monocytes % (Manual) 5 % Eosinophils % (Manual) 1 % Blood Morphology Comment NORMAL Sodium Level 138 135-145 MMOL/L Potassium Level 4.6 3.6-5.0 MMOL/L Chloride Level 105 98-107 MMOL/L Carbon Dioxide Level 24 21-32 MMOL/L Anion Gap 9 5-14 MMOL/L Blood Urea Nitrogen 13 7-18 MG/DL Creatinine 0.77 0.60-1.30 MG/DL Estimat Glomerular Filtration Rate 79 BUN/Creatinine Ratio 17 Glucose Level 111 H 70-105 MG/DL Calcium Level 9.8 8.5-10.1 MG/DL Corrected Calcium 9.4 8.5-10.1 MG/DL Total Bilirubin 0.3 0.1-1.0 MG/DL Aspartate Amino Transf (AST/SGOT) 26 5-34 U/L Alanine Aminotransferase (ALT/SGPT) 44 0-55 U/L Alkaline Phosphatase 44 40-136 U/L Total Protein 7.5 6.4-8.2 GM/DL Albumin 4.5 3.2-4.5 GM/DL Urine Color YELLOW Urine Clarity CLEAR Urine pH 6.0 5-9 Urine Specific Hunter 1.025 H 1.016-1.022 Urine Protein NEGATIVE NEGATIVE Urine Glucose (UA) NEGATIVE NEGATIVE Urine Ketones NEGATIVE NEGATIVE Urine Nitrite NEGATIVE NEGATIVE Urine Bilirubin NEGATIVE NEGATIVE Urine Urobilinogen 0.2 < = 1.0 MG/DL Urine Leukocyte Esterase NEGATIVE NEGATIVE Urine RBC (Auto) 1+ H NEGATIVE Urine RBC NONE /HPF Urine WBC NONE /HPF Urine Squamous Epithelial Cells NONE /HPF Urine Renal Epithelial Cells NONE /HPF Urine Crystals NONE /LPF Urine Bacteria NEGATIVE /HPF Urine Casts NONE /LPF Urine Mucus NEGATIVE /LPF Urine Culture Indicated NO My Orders Orders - CLIFTON DESAI APRN Cbc With Automated Diff (05/27/21 20:04) Comprehensive Metabolic Panel (05/27/21 20:04) Ua Culture If Indicated (05/27/21 20:04) Ed Iv/Invasive Line Start (05/27/21 20:04) Antacid Suspension (Mylanta Suspension (05/27/21 20:15) Lidocaine 2% Viscous 15 Ml (Xylocaine Vi (05/27/21 20:15) Manual Differential (05/27/21 19:50) Ondansetron Injection (Zofran Injectio (05/27/21 20:15) Ct Abdomen/Pelvis W (05/27/21 20:15) Fentanyl Inj (Sublimaze Injection) (05/27/21 20:30) Lactated Ringers (Lr 1000 Ml Iv Solution (05/27/21 20:30) Iohexol Injection (Omnipaque 350 Mg/Ml 1 (05/27/21 20:45) Received Contrast (Hold Metformin- Contr (05/27/21 20:45) Ns (Ivpb) (Sodium Chloride 0.9% Ivpb Bag (05/27/21 20:45) Medications Given in ED Current Medications Medications Dose Ordered Sig/Mike Route Start Time Stop Time Status Last Admin Dose Admin Al Hydrox/Mg Hydrox/Simethicone 30 ml ONCE ONCE PO 05/27/21 20:15 05/27/21 20:16 DC 05/27/21 20:30 30 ML Iohexol 100 ml ONCE ONCE IV 05/27/21 20:45 05/27/21 20:46 DC 05/27/21 20:47 100 ML Lidocaine HCl 10 ml ONCE ONCE PO 05/27/21 20:15 05/27/21 20:16 DC 05/27/21 20:30 10 ML Ondansetron HCl 4 mg ONCE ONCE IVP 05/27/21 20:15 05/27/21 20:16 DC 05/27/21 20:30 4 MG Sodium Chloride 100 ml ONCE ONCE IV 05/27/21 20:45 05/27/21 20:46 DC 05/27/21 20:48 80 ML Vital Signs/I&O 05/27/21 19:45 Temp 36.4 Pulse 79 Resp 18 B/P (MAP) 161/87 (111) O2 Delivery Room Air Blood Pressure Mean: 111 Departure Communication (Admissions) Family Conversation [id number] images. On the coronal films there does appear to be a dilated appendix with periappendiceal edema. Discussed this with radiology as there was mention in the report that appendix could not be seen. Upon reviewing the images he agrees this is an acute appendicitis. NAME: CHELLE TORRES [facility] REC#: [id number] PT STATUS: REG ER : 1970 PHYSICIAN: CLIFTON DESAI APRN ADMIT DATE: 05/27/21/ER Draft Date of Exam:05/27/21 CT ABDOMEN/PELVIS W PROCEDURE: CT abdomen and pelvis with contrast. TECHNIQUE: Multiple contiguous axial images were obtained through the abdomen and pelvis after administration of intravenous contrast. Auto Exposure Controls were utilized during the CT exam to meet ALARA standards for radiation dose reduction. All CT scans use one or more of the following dose optimizing techniques: automated exposure control, MA and/or KvP adjustment based on patient size and exam type or iterative reconstruction. INDICATION: Abdominal pain. COMPARISON: 09/16/2016. FINDINGS: There is dependent atelectasis in the lung bases. The heart is normal in size. The liver demonstrates no focal lesion. The spleen demonstrates no acute abnormality. The pancreas appears normal. The adrenal glands are normal. The kidneys demonstrate no acute abnormality. No enhancing lesion or hydronephrosis is seen. The appendix is not definitely seen, but no secondary finding of appendicitis is identified. There is marked stool in the ascending and transverse colon. The distal colon appears decompressed. The bowel loops are nondistended without obstruction. No free fluid or free air is seen. No lymphadenopathy is seen. An intrauterine device is noted. There is minimal free fluid in the pelvis. There is an involuting cyst on the left ovary measuring 1.9 cm. No acute osseous abnormality is seen. IMPRESSION: 1. Marked stool in the proximal colon, please correlate with any history of constipation. 2. Involuting cyst of the left ovary with trace free fluid. Dictated on workstation # [id number] Dict: 05/27/212113 Trans: 05/27/212123 [facility] [id number] Interpreted by: JANUSZ TALBERT MD Electronically signed by: Impression Primary Impression: Appendicitis Disposition: ADMITTED INPATIENT Condition: Stable Admissions Decision to Admit Reason: Admit from ER (General) Decision to Admit/Date: May 27, 2021 Time/Decision to Admit Time: 21:33 Departure-Patient Inst. Referrals: NO,LOCAL PHYSICIAN (PCP/Family) Primary Care Physician CLIFTON DESAI APRN May 27, 2021 20:23
[2021-05-27] MEDS ORDERED: LACTATED RINGERS 1,000 ML IV SCH (20:30)
[2021-05-27] MEDS ORDERED: fentaNYL INJ 100 MCG/2 ML AMP IVP ONE (20:30)
[2021-05-27 20:34] LABS: BACTERIA,URINE NEGATIVE /HPF
[2021-05-27 20:37] LABS: EOSINOPHILS % (MANUAL) 1 %; LYMPHOCYTES % (MANUAL) 10 %; MONOCYTES % (MANUAL) 5 %; NEUTROPHILS % (MANUAL) 84 %; RBC MORPH NORMAL
[2021-05-27] MEDS ORDERED: NS 100 ML (IVPB) BAG IV ONE (20:45)
[2021-05-27] MEDS ORDERED: HOLD METFORMIN - RECEIVED CONTRAST 20 ML VIAL IV SCH (20:45)
[2021-05-27] MEDS ORDERED: IOHEXOL 350 MG/ML 100 ML (OMNIPAQUE 350) VIAL IV ONE (20:45)
--- NOTE | 2021-05-27 21:25 | Diagnostic Imaging Report ---
PROCEDURE: CT abdomen and pelvis with contrast. TECHNIQUE: Multiple contiguous axial images were obtained through the abdomen and pelvis after administration of intravenous contrast. Auto Exposure Controls were utilized during the CT exam to meet ALARA standards for radiation dose reduction. All CT scans use one or more of the following dose optimizing techniques: automated exposure control, MA and/or KvP adjustment based on patient size and exam type or iterative reconstruction. INDICATION: Abdominal pain. COMPARISON: 09/16/2016. FINDINGS: There is dependent atelectasis in the lung bases. The heart is normal in size. The liver demonstrates no focal lesion. The spleen demonstrates no acute abnormality. The pancreas appears normal. The adrenal glands are normal. The kidneys demonstrate no acute abnormality. No enhancing lesion or hydronephrosis is seen. The appendix is enlarged, and there is surrounding edema consistent with appendicitis. No loculated fluid collection or free air is seen. There is marked stool in the ascending and transverse colon. The distal colon appears decompressed. The bowel loops are nondistended without obstruction. No free fluid or free air is seen. No lymphadenopathy is seen. An intrauterine device is noted. There is minimal free fluid in the pelvis. There is an involuting cyst on the left ovary measuring 1.9 cm. No acute osseous abnormality is seen. IMPRESSION: 1. Findings of acute appendicitis without perforation. 2. Marked stool in the proximal colon, please correlate with any history of constipation 3. Involuting cyst of the left ovary with trace free fluid. Following the initial preliminary report, acute appendicitis discussed with CLIFTON DESAI APRN, on 05/27/2021 9:31 PM. Dictated by: Dictated on workstation # [id number]
--- NOTE | 2021-05-27 21:51 | Progress Note-Pre Operative ---
Pre-Operative Progress Note H&P Reviewed The H&P was reviewed, patient examined and no changes noted. Date Seen by Provider: May 27, 2021 Time Seen by Provider: 22:00 Date H&P Reviewed: May 27, 2021 Time H&P Reviewed: 22:00 Pre-Operative Diagnosis: acute appendicitis MAYLIN CHEN MD May 27, 2021 21:51
[2021-05-27] MEDS ORDERED: lisINopril 10 MG (PRINIVIL) TABLET PO ONE (22:00)
--- NOTE | 2021-05-27 22:29 | HISTORY AND PHYSICAL ---
DATE OF SERVICE: HISTORY OF PRESENT ILLNESS: The patient is a 51-year-old female who presented to the Emergency Department tonight with pain in the right lateral abdomen starting earlier today. She states that she has a history of peptic ulcer disease; however, this pain was in different location in different characteristics. Pain was sharp in nature and worsened upon ambulation. She reports that the pain worsened over time as well. She does not report any fever nor chills. She is also not experiencing any nausea, no vomiting. A CT scan was performed, which did show inflammation of the appendix consistent with an acute appendicitis. PAST MEDICAL HISTORY: Peptic ulcer disease. PAST SURGICAL HISTORY: Carpal tunnel release 05/03/2021, tubal ligation, tonsillectomy. ALLERGIES: No known drug allergies. MEDICATIONS: Albuterol p.r.n. SOCIAL HISTORY: Positive smoke [id number], social alcohol. FAMILY HISTORY: Noncontributory. VITAL SIGNS: Temperature 36.4, blood pressure 161/87, pulse 79, respirations 18. REVIEW OF SYSTEMS: This is a well-nourished female, currently in no acute distress. She is not experiencing any shortness of breath or difficulty breathing. No chest pain, palpitations, diaphoresis. No nausea or vomiting. No diarrhea or constipation. No fever or chills. No recent inadvertent weight loss. All other review of systems negative. PHYSICAL EXAMINATION: CHEST: Clear. Good breath sounds bilaterally. HEART: Regular, no murmurs. EXTREMITIES: No lower extremity edema, negative Homans sign. HEENT: No scleral icterus. NECK: No cervical lymphadenopathy. ABDOMEN: Soft, nondistended. There is pain in the right lower abdominal quadrant at McBurney's point with voluntary guarding, no rebound. SKIN: Warm, dry. LABORATORY DATA: WBC 18.9, hemoglobin 11.6, hematocrit 36, platelets 475. BUN 13, creatinine 0.77. ASSESSMENT AND PLAN: A 51-year-old female with acute appendicitis. Natural history of this disease process was explained to the patient as well as the risks and benefits of surgery and she is understanding of this and would like to proceed with a laparoscopic appendectomy, which we will schedule on this admission. Job ID: [id number] DocumentID: [id number] Dictated Date: 05/27/2021 22:09:25 Plant Physiology Teacher Date: 05/27/2021 22:29:15 Dictated By: MAYLIN CHEN MD
[2021-05-27 23:00] VITALS: BP 112/68
[2021-05-27] MEDS ORDERED: ONDANSETRON 4 MG/2 ML (SDV) Z0FRAN IVP PRN (23:30)
[2021-05-27] MEDS: LACTATED RINGERS 1,000 ML IV SCH (23:48)
[2021-05-28] VITALS (11 sets, daily range): BP systolic 106–124; BP diastolic 54–73
[2021-05-28] MEDS ORDERED: PIPERACILLIN/TAZOBACTAM 4.5 GM in NS (IVPB) 100 ML IV ONE ×2
[2021-05-28] MEDS: fentaNYL INJ 100 MCG/2 ML AMP IVP PRN ×4 (00:10→14:24)
[2021-05-28] MEDS: PIPERACILLIN/TAZO 4.5 GM/NS 100 ML IV SCH ×4 (05:32→13:27)
[2021-05-28 06:07] LABS: BASOPHILS % (AUTO) 0 % (0-10); EOSINOPHILS # (AUTO) 0.2 10^3/uL (0.0-0.3); EOSINOPHILS % (AUTO) 2 % (0-10); HEMATOCRIT 32 % (35-52); HEMOGLOBIN 10.1 g/dL (11.5-16.0); LYMPHOCYTES # (AUTO) 2.2 10^3/uL (1.0-4.0); LYMPHOCYTES % (AUTO) 19 % (12-44); MEAN CORPUSCULAR HEMOGLOBIN 26 pg (25-34); MEAN CORPUSCULAR HGB CONC 32 g/dL (32-36); MEAN CORPUSCULAR VOLUME 82 fL (80-99); MEAN PLATELET VOLUME 8.8 fL (9.0-12.2); MONOCYTES # (AUTO) 0.8 10^3/uL (0.0-1.0); MONOCYTES % (AUTO) 7 % (0-12); NEUTROPHILS # (AUTO) 8.2 10^3/uL (1.8-7.8); NEUTROPHILS % (AUTO) 71 % (42-75); PLATELET COUNT 386 10^3/uL (130-400); WHITE BLOOD COUNT 11.5 10^3/uL (4.3-11.0)
[2021-05-28 06:38] LABS: CREATININE SERUM 0.69 MG/DL (0.60-1.30)
[2021-05-28] MEDS: LACTATED RINGERS 1,000 ML IV SCH ×2 (07:32→15:53)
[2021-05-28] MEDS ORDERED: HYDR-3817 PO (12:18)
--- NOTE | 2021-05-28 12:18 | Discharge Inst-Surgical ---
D/C Lap Instructions-KIDO Reconcile Patient Problems Problems Reviewed?: Yes New, Converted, or Re-Newed RX: RX on Chart Follow Up Appt in 2 weeks Activity as tolerated No driving for 24 hours No driving while on pain medications Incentive Spirometry use every 2 hours while awake Regular Diet Symptoms to Report: Fever over 101 degree F, Nausea/Vomiting Infection Signs and Symptoms to report: Increased redness, Foul odor of wound, Increased drainage Bathing instructions: May shower Operative Area Clean/Dry; Keep incision clean/dry If any problems/questions: Contact your physician or go to Emergency Room ZORA KNIGHT APRN May 28, 2021 12:18
[2021-05-28] MEDS ORDERED: LIDOCAINE/EPI 1%-1:200,000 (XYLOCAINE) 30 ML VIAL ONE ×2 (14:44→15:47)
[2021-05-28] MEDS ORDERED: MIDAZOLAM 2 MG/2 ML (VERSED) VIAL ONE (16:50)
[2021-05-28] MEDS ORDERED: LIDOCAINE PF 2% 5 ML (XYLOCAINE) VIAL ONE (16:50)
[2021-05-28] MEDS ORDERED: proPOfol 200 MG/20 ML (DIPRIVAN) VIAL IV ONE (16:50)
[2021-05-28] MEDS ORDERED: ROCURONIUM 10 MG/ML 5 ML SYRINGE IV ONE (16:50)
[2021-05-28] MEDS ORDERED: ONDANSETRON 4 MG/2 ML (SDV) Z0FRAN ONE (16:50)
[2021-05-28] MEDS ORDERED: SEVOFLURANE (ULTANE) 15 ML INHAL SOLN ONE ×2 (16:50→17:55)
[2021-05-28] MEDS ORDERED: fentaNYL INJ 100 MCG/2 ML AMP ONE (16:50)
[2021-05-28] MEDS: LACTATED RINGERS 1,000 ML IV PRN ×2 (17:00→18:05)
[2021-05-28] MEDS ORDERED: ceFAZolin INJECTION 2,000 MG ONE (17:18)
[2021-05-28] MEDS ORDERED: KETOROLAC 30 MG/ML VIAL ONE (17:47)
[2021-05-28] MEDS ORDERED: GLYCOPYRROLATE 0.2 MG/ML (ROBINUL) 2 ML VIAL ONE (17:47)
[2021-05-28] MEDS ORDERED: NEOSTIGMINE 3 MG/3 ML VIAL ONE (17:47)
--- NOTE | 2021-05-28 17:53 | Progress Note-Post Operative ---
Post-Operative Progess Note Surgeon (s)/Journeyman Sheet Metal Worker (s) Surgeon MAYLIN CHEN MD Journeyman Sheet Metal Worker: skip villegas DEBIT AGENT Pre-Operative Diagnosis acute appendicitis Post-Operative Diagnosis same Procedure & Operative Findings Date of Procedure 05/28/21 Procedure Performed/Findings laparoscopic appendectomy Anesthesia Type get Estimated Blood Loss Estimated blood loss (mL): minimal Specimens/Packing Specimens Removed appendix MAYLIN CHEN MD May 28, 2021 17:53
[2021-05-28] MEDS ORDERED: HYDROcodone/APAP 7.5 MG/325 MG (LORTAB, LORCET PLUS) TABLET PO PRN (18:00)
[2021-05-28] MEDS ORDERED: LACTATED RINGERS 1,000 ML IV ONE (18:05)
[2021-05-28] MEDS ORDERED: HYDROmorphone 2 MG/ML VIAL (DILAUDID) IV ONE (18:15)
[2021-05-28] MEDS: ONDANSETRON 4 MG/2 ML (SDV) Z0FRAN IVP PRN ×2 (18:15→18:50)
--- NOTE | 2021-05-28 19:28 | Anesthesia-General Post-Op ---
General Patient Condition Mental Status/LOC: Same as Preop Cardiovascular: Satisfactory Nausea/Vomiting: Absent Respiratory: Satisfactory Pain: Controlled Complications: Absent Post Op Complications Complications None Follow Up Care/Instructions Patient Instructions None needed. Anesthesia/Patient Condition Patient Condition Patient is doing well, no complaints, stable vital signs, no apparent adverse anesthesia problems. No complications reported per nursing. D/C home per [facility] Criteria: Yes JOSEPH LABOY CRNA May 28, 2021 19:28
--- NOTE | 2021-05-29 00:27 | OPERATIVE REPORT ---
DATE OF SERVICE: 05/28/2021 PREOPERATIVE DIAGNOSIS: Acute appendicitis. POSTOPERATIVE DIAGNOSIS: Acute appendicitis. No perforation. PROCEDURE: Laparoscopic appendectomy. SURGEON: Maylin Chen MD CANADIAN BACON TIER: Neeraj Mirza APRN ANESTHESIA: General endotracheal. ESTIMATED BLOOD LOSS: Minimal. FINDINGS: Retrocecal appendix with dilated appendix, no perforation. Left physiologic ovarian cyst. DISPOSITION: The patient tolerated the procedure well. INDICATIONS: The patient is a 51-year-old female who presented to the Emergency Department with pain in the right lateral abdomen starting earlier that day. She states that she has a history of peptic ulcer disease and was treated medically and this had improved and the pain that she was experiencing was different in location as well as different in characteristics. Pain was sharp in nature and worsened upon ambulation. She does not report any fever, no chills. She also does not report any nausea, no vomiting. A CT scan was performed, which did show inflammation of the appendix consistent with an acute appendicitis. DESCRIPTION OF PROCEDURE: The patient was brought to the operating room, laid supine on the table. After adequate IV pain and sedative medications and general endotracheal intubation, the abdomen was prepped and draped in standard surgical fashion. A 0.5% Marcaine with epinephrine was then used to anesthetize the overlying skin in the left upper abdominal quadrant and a transverse skin incision made using a 15 blade. An 0 silk suture was applied to the medial aspect incision for retraction and a Veress needle inserted with low opening pressure of 0 mmHg. The abdomen was insufflated to 15 mmHg pressure. The Veress needle removed and a 5 mm XL trocar placed followed by a 5 mm 45-degree angle laparoscope visualizing the peritoneal cavity. A 4-quadrant abdominal exploration was performed. There was a retrocecal appendix that was dilated with no perforation. There was a left physiologic ovarian cyst. Under direct visualization, we then proceeded to place a supraumbilical 10 mm port after the skin and peritoneal lining were anesthetized using 0.5% Marcaine with epinephrine and a transverse skin incision made using 15 blade. In a similar manner, a suprapubic 5 mm port was placed. The patient was then placed in a Trendelenburg position as well as plane right side up, left side down. The base of the appendix was identified and we proceeded with dissection of the retrocecal appendix using the hook instrument. Once the appendix was freed of its lateral attachments. It was retracted towards the anterior abdominal wall and a window created between the base of the appendix and the mesoappendix using a [place] dissector. The appendix was then stapled and transected at the cecal base using a ELIANA 45 mm stapler with 2.5 mm thickness load. The mesoappendix was then stapled and transected with the same stapler with a 2.0 mm thickness reload with visualization of good hemostasis. The appendix was removed through the 10 mm port site using an EndoCatch bag. The 10 mm port site fascia and peritoneum were then closed under direct visualization using a Arben-Michele device and 0 Vicryl suture. The abdomen was desufflated and the remaining ports removed. All skin incisions were closed with 4-0 Monocryl running subcuticular sutures. Wounds were then cleaned and covered with Dermabond. The patient tolerated the procedure well. We will start IV normal pain medication as well as a clear liquid diet. Once she is tolerating clears, has good pain control with oral pain medications, ambulating well, we will discharge her home. She will be instructed to do no heavy lifting or exertion for the next two weeks as well. Job ID: [id number] DocumentID: [id number] Dictated Date: 05/28/2021 18:00:49 Aircraft Instrument Engineer Date: 05/29/2021 00:27:14 Dictated By: MAYLIN CHEN MD
== END 2021-05-28 20:30 | disposition home or self-care (01) ==
LOC: EDUNIT# 18:55 → ER 18:57 → 4TH 22:00 → SDC 22:00 → 4TH 22:00 → UNDOADMOB 22:00 → SDC 05-28 20:30 → UNDODISOB 05-28 20:30
PROVIDERS: ATTEND Surgery
DX: K35.80 Unspecified acute appendicitis (principal); K38.8 Other specified diseases of appendix; J30.2 Other seasonal allergic rhinitis; K27.9 Peptic ulcer, site unspecified, unspecified as acute or chronic, without hemorrhage or perforation; F17.210 Nicotine dependence, cigarettes, uncomplicated; Z79.899 Other long term (current) drug therapy
CPT/HCPCS: 36415; 74177; 80048; 80053; 81000; 84703; 85007; 85025; 85027; 87081; 88304; 96374

== ENCOUNTER 2021-06-16 19:46 | Emergency (ER) | payer BC ==
[~2021-06-16 19:46] MED LIST changes: +HYDR-3817 PO
[2021-06-16] MEDS ORDERED: ONDANSETRON 4 MG/2 ML (SDV) Z0FRAN IVP ONE (20:00)
--- NOTE | 2021-06-16 20:03 | ED Abdominal Pain ---
General Chief Complaint: Abdominal/GI Problems Stated Complaint: ABDOMINAL PAIN, POST APPENDECTOMY Source of Information: Patient Exam Limitations: No Limitations (CLIFTON DESAI APRN) History of Present Illness Date Seen by Provider: Jun 16, 2021 Time Seen by Provider: 20:02 Initial Comments Had a laparoscopic appendectomy on 05/29/2021. She reports increasing abdominal fullness in the lower abdomen with some pain. No fevers. Intermittent nausea. She is passing gas and having bowel movements per her usual. Timing/Duration: 1-2 Days Severity/Quality: Moderate Radiation: No Radiation Activities at Onset: None Associated Symptoms: Nausea/Vomiting (CLIFTON DESAI APRN) Allergies and Home Medications Allergies Coded Allergies: No Known Drug Allergies (Unverified , 04/07/20) Patient Home Medication List Home Medication List Reviewed: Yes (CLIFTON DESAI APRN) Albuterol Sulfate (Proair Digihaler) 90 Mcg Aer.pw.bas, (Reported) Entered as Reported by: ERIKA ESTRADA on 03/25/20 1307 Hydrocodone/Acetaminophen (Hydrocodone-Acetamin 7.5-325) 1 Each Tablet, 1 EACH PO Q4H PRN for PAIN-BREAKTHROUGH Prescribed by: ZORA KNIGHT on 05/28/21 1218 Review of Systems Review of Systems Constitutional: see HPI EENTM: No Symptoms Reported Respiratory: No Symptoms Reported Cardiovascular: No Symptoms Reported Gastrointestinal: See HPI, Abdominal Pain Genitourinary: No Symptoms Reported Musculoskeletal: no symptoms reported Skin: no symptoms reported Psychiatric/Neurological: No Symptoms Reported Endocrine: No Symptoms Reported Hematologic/Lymphatic: No Symptoms Reported (CLIFTON DESAI APRN) Past Zjhmett-Wzcetu-Lepimn Hx Immunizations Up To Date Tetanus Booster (TDap): More than 5yrs First/Initial COVID19 Vaccinat: 01/2021 Second COVID19 Vaccination Armin: 01/2021 (CLIFTON DESAI APRN) Seasonal Allergies Seasonal Allergies: Yes (CLIFTON DESAI APRN) Past Medical History Surgery/Hospitalization HX: Carpal tunnal surgery 05/03/21. Surgeries: Yes Tonsillectomy, Tubal Ligation Respiratory: No Currently Using CPAP: No Currently Using BIPAP: No Cardiac: No Neurological: No Reproductive Disorders: No Sexually Transmitted Disease: No HIV/AIDS: No Genitourinary: No Gastrointestinal: No Musculoskeletal: No Endocrine: No HEENT: Yes (GLASSES) Loss of Vision: Denies Hearing Impairment: Denies Cancer: No Psychosocial: No Integumentary: No Blood Disorders: No Adverse Reaction/Blood Tranf: No (N/A) (CLIFTON DESAI APRN) Family Medical History No Pertinent Family Hx (CLIFTON DESAI APRN) Physical Exam Vital Signs Vital Signs - First Documented 06/16/21 06/16/21 19:53 21:12 Temp 37.0 Pulse 90 Resp 16 B/P (MAP) 139/90 (106) Pulse Ox 98 O2 Delivery Room Air (MARCELLO PERKINS MD) Vital Signs Capillary Refill : (CLIFTON DESAI APRN) Height/Weight/BMI Height: 5'5" Weight: 160lbs. oz. [id number]; 26.53 BMI Method:Stated General Appearance: WD/WN, no apparent distress Neck: non-tender, full range of motion Respiratory: no respiratory distress, no accessory muscle use Cardiovascular: regular rate, rhythm, no murmur Gastrointestinal: normal bowel sounds, non tender, soft, other (Incisions are clean dry and intact without any infectious change. Bowel sounds are normal.) Extremities: normal range of motion, non-tender Neurologic/Psychiatric: alert, normal mood/affect, oriented x 3 Skin: normal color, warm/dry (CLIFTON DESAI APRN) Progress/Results/Core Measures Results/Orders Lab Results Laboratory Tests Test 06/16/21 19:58 Range/Units White Blood Count 8.7 4.3-11.0 10^3/uL Red Blood Count 4.25 3.80-5.11 10^6/uL Hemoglobin 10.8 L 11.5-16.0 g/dL Hematocrit 34 L 35-52 % Mean Corpuscular Volume 81 80-99 fL Mean Corpuscular Hemoglobin 25 25-34 pg Mean Corpuscular Hemoglobin Concent 31 L 32-36 g/dL Red Cell Distribution Width 16.2 H 10.0-14.5 % Platelet Count 498 H 130-400 10^3/uL Mean Platelet Volume 8.4 L 9.0-12.2 fL Immature Granulocyte % (Auto) 0 % Neutrophils (%) (Auto) 60 42-75 % Lymphocytes (%) (Auto) 31 12-44 % Monocytes (%) (Auto) 6 0-12 % Eosinophils (%) (Auto) 3 0-10 % Basophils (%) (Auto) 1 0-10 % Neutrophils # (Auto) 5.2 1.8-7.8 10^3/uL Lymphocytes # (Auto) 2.7 1.0-4.0 10^3/uL Monocytes # (Auto) 0.5 0.0-1.0 10^3/uL Eosinophils # (Auto) 0.2 0.0-0.3 10^3/uL Basophils # (Auto) 0.0 0.0-0.1 10^3/uL Immature Granulocyte # (Auto) 0.0 0.0-0.1 10^3/uL Sodium Level 140 135-145 MMOL/L Potassium Level 3.7 3.6-5.0 MMOL/L Chloride Level 105 98-107 MMOL/L Carbon Dioxide Level 26 21-32 MMOL/L Anion Gap 9 5-14 MMOL/L Blood Urea Nitrogen 12 7-18 MG/DL Creatinine 0.76 0.60-1.30 MG/DL Estimat Glomerular Filtration Rate 81 BUN/Creatinine Ratio 16 Glucose Level 134 H 70-105 MG/DL Calcium Level 9.8 8.5-10.1 MG/DL Corrected Calcium 9.7 8.5-10.1 MG/DL Total Bilirubin 0.2 0.1-1.0 MG/DL Aspartate Amino Transf (AST/SGOT) 19 5-34 U/L Alanine Aminotransferase (ALT/SGPT) 28 0-55 U/L Alkaline Phosphatase 48 40-136 U/L Total Protein 6.8 6.4-8.2 GM/DL Albumin 4.1 3.2-4.5 GM/DL (MARCELLO PERKINS MD) Medications Given in ED Current Medications Medications Dose Ordered Sig/Mike Route Start Time Stop Time Status Last Admin Dose Admin Iohexol 100 ml ONCE ONCE IV 06/16/21 20:30 06/16/21 20:31 DC 06/16/21 20:33 93 ML Ondansetron HCl 8 mg ONCE ONCE IVP 06/16/21 20:00 06/16/21 20:02 DC 06/16/21 20:09 8 MG Sodium Chloride 100 ml ONCE ONCE IV 06/16/21 20:30 06/16/21 20:31 DC 06/16/21 20:33 80 ML (MARCELLO PERKINS MD) Vital Signs/I&O 06/16/21 06/16/21 19:53 21:12 Temp 37.0 Pulse 90 87 Resp 16 16 B/P (MAP) 139/90 (106) 135/89 Pulse Ox 98 99 O2 Delivery Room Air Room Air (MARCELLO PERKINS MD) Departure Impression Primary Impression: Constipation Disposition: HOME, SELF-CARE Condition: Stable Departure-Patient Inst. Decision time for Depature: 20:39 (CLIFTON DESAI APRN) Referrals: NO,LOCAL PHYSICIAN (PCP/Family) Primary Care Physician Patient Instructions: Constipation, Adult (DC) Add. Discharge Instructions: 1. Take laxative as directed. Return to ER for any concerns. Follow-up with your doctor next week. All discharge instructions reviewed with patient and/or family. Voiced understanding. ATTENDING PHYSICIAN NOTE: I was physically present as attending physician in the emergency department during the care of this patient, but I was not directly involved in the decision making or delivery of care for this patient. (MARCELLO PERKINS MD) CLIFTON DESAI APRN Jun 16, 2021 20:03 MARCELLO PERKINS MD Jun 17, 2021 05:38
[2021-06-16 20:06] LABS: BASOPHILS % (AUTO) 1 % (0-10); EOSINOPHILS # (AUTO) 0.2 10^3/uL (0.0-0.3); EOSINOPHILS % (AUTO) 3 % (0-10); HEMATOCRIT 34 % (35-52); HEMOGLOBIN 10.8 g/dL (11.5-16.0); LYMPHOCYTES # (AUTO) 2.7 10^3/uL (1.0-4.0); LYMPHOCYTES % (AUTO) 31 % (12-44); MEAN CORPUSCULAR HEMOGLOBIN 25 pg (25-34); MEAN CORPUSCULAR HGB CONC 31 g/dL (32-36); MEAN CORPUSCULAR VOLUME 81 fL (80-99); MEAN PLATELET VOLUME 8.4 fL (9.0-12.2); MONOCYTES # (AUTO) 0.5 10^3/uL (0.0-1.0); MONOCYTES % (AUTO) 6 % (0-12); NEUTROPHILS # (AUTO) 5.2 10^3/uL (1.8-7.8); NEUTROPHILS % (AUTO) 60 % (42-75); PLATELET COUNT 498 10^3/uL (130-400); WHITE BLOOD COUNT 8.7 10^3/uL (4.3-11.0)
[2021-06-16 20:25] LABS: ALBUMIN 4.1 GM/DL (3.2-4.5); BILIRUBIN,TOTAL 0.2 MG/DL (0.1-1.0); CALCIUM 9.8 MG/DL (8.5-10.1); CREATININE SERUM 0.76 MG/DL (0.60-1.30); POTASSIUM 3.7 MMOL/L (3.6-5.0); TOTAL PROTEIN 6.8 GM/DL (6.4-8.2)
[2021-06-16] MEDS ORDERED: NS 100 ML (IVPB) BAG IV ONE (20:30)
[2021-06-16] MEDS ORDERED: HOLD METFORMIN - RECEIVED CONTRAST 20 ML VIAL IV SCH (20:30)
[2021-06-16] MEDS ORDERED: IOHEXOL 350 MG/ML 100 ML (OMNIPAQUE 350) VIAL IV ONE (20:30)
--- NOTE | 2021-06-16 20:45 | Diagnostic Imaging Report ---
EXAMINATION: CT abdomen and pelvis with intravenous contrast. TECHNIQUE: Multiple contiguous axial images were obtained through the abdomen and pelvis after the uneventful administration of intravenous contrast. All CT scans use one or more of the following dose optimizing techniques: automated exposure control, MA and/or KvP adjustment based on patient size and exam type or iterative reconstruction. HISTORY: Abdominal pain. Recent appendectomy. COMPARISON: 05/27/2021. FINDINGS: The heart is unremarkable. Minimal subsegmental atelectasis is seen in the lung bases. The liver, spleen, pancreas, adrenal glands, and kidneys have a normal appearance. There is no pathologically enlarged mesenteric or retroperitoneal adenopathy. The bowel loops are nondilated. The appendix is surgically absent. Moderate to large amount of stool is seen throughout the colon. There is no free fluid or free air. No acute osseous abnormalities. There is calcified aortic and iliac atherosclerotic plaque without aneurysm. Ureters and bladder are grossly normal. IUD is in place. There is no free air, loculated collection, or adenopathy in the pelvis. IMPRESSION: 1. Moderate to large amount of stool in the colon, suggestive of constipation. 2. Postsurgical changes of appendectomy. No abscess. No free fluid or free air in the abdomen and pelvis. Dictated by: Dictated on workstation # [id number]
[2021-06-16 21:12] VITALS: BP 135/89
== END 2021-06-16 21:13 | disposition home or self-care (01) ==
LOC: EDUNIT# 19:46 → ER 19:49
DX: K59.00 Constipation, unspecified (principal); Z90.89 Acquired absence of other organs
CPT/HCPCS: 36415; 74177; 80053; 85025

== ENCOUNTER 2021-06-20 18:31 | Emergency (ER) | payer BC ==
[~2021-06-20] VITALS: Ht 170 cm; Wt 72.7 kg
[2021-06-20] MEDS ORDERED: LACTATED RINGERS 1,000 ML IV ONE (18:45)
--- NOTE | 2021-06-20 18:51 | ED Abdominal Pain ---
General Chief Complaint: Abdominal/GI Problems Stated Complaint: ABD PAIN Source of Information: Patient History of Present Illness Date Seen by Provider: Jun 20, 2021 Time Seen by Provider: 18:38 Initial Comments PT ARRIVES VIA POV FROM HOME C/O LEFT SIDED MID ABDOMINAL PAIN--ONGOING FOR 3 WEEKS SINCE HER APPENDECTOMY HAD LAPAROSCOPIC APPENDECTOMY BY DR. CHEN ON 05/27/21 HAS NOT ATTEMPTED TO FOLLOW UP WITH DR. CHEN AT ANY TIME--STATES SHE "DOESN'T HAVE A FOLLOW UP APPOINTMENT" STATES HE FOUND AN OVARIAN CYST AND FIBROID TUMOR ON HER UTERUS WHEN HE DID THE APPENDECTOMY, AND SHE IS TO FOLLOW UP WITH DR. LANCE AT [facility] NEXT WEEK ( DR. GÓMEZ IS HER REAL PROPERTY EVALUATOR, BUT IS RETIRING IN JULY , SO WAS REFERRED TO DR. LANCE) . SHE ALSO HAS VERY HEAVY AND PAINFUL PERIODS--HAS IUD IN PLACE TO CONTROL PERIODS, WELL BTL. PAIN IS CONSTANT, ALWAYS IN SAME PLACE, AND DOES NOT RADIATE NO FEVER NO NAUSEA/VOMITING HAD SMALL BM TODAY--WAS SEEN HERE 06/16/21 FOR THIS PROBLEM AND DX WITH CONSTIPATION, AND ADVISED TO TAKE MIRALAX AND SENNA, STATES SHE HAS BEEN TAKING EVERY DAY SINCE THEN. STATES SHE HAS ALWAYS HAD ISSUES WITH CONSTIPATION, BUT NORMALLY DOES NOT TAKE ANYTHING FOR IT NO URINARY SYMPTOMS HAS BEEN ABLE TO EAT AND DRINK NORMALLY--LAST ATE AROUND 1600 TODAY--RADHA CABRAL HAS NOT TAKEN ANYTHING FOR PAIN FOR THE LAST 2 WEEKS TODAY, SHE DECIDED TO DO SOME YARD WORK AND RAKED THE YARD TODAY, AND WHEN SHE CAME IN, HER PAIN WAS WORSE STATES SHE HAS NOT DONE ANY PHYSICAL ACTIVITY FOR ABOUT A MONTH. RATES PAIN / PT HAS NOT HAD ANY PRIOR GI PROBLEMS OR ANY OTHER ABDOMINAL SURGERY OTHER THAN BTL. LMP 06/04/21. S/P BTL. PT HAS HAD MODERNA COVID-19 VACCINE X 2--LAST ONE 01/2021 PCP: NONE REAL PROPERTY EVALUATOR: [facility]--DR. GÓMEZ/DR. LANCE SURGEON: DR. CHEN Allergies and Home Medications Allergies Coded Allergies: No Known Drug Allergies (Unverified , 04/07/20) Patient Home Medication List Home Medication List Reviewed: Yes Albuterol Sulfate (Proair Digihaler) 90 Mcg Aer.pw.bas, (Reported) Entered as Reported by: ERIKA ESTRADA on 03/25/20 1307 Dicyclomine HCl (Dicyclomine HCl) 20 Mg Tablet, 20 MG PO Q6H Prescribed by: ISREAL REID on 06/20/212008 Hydrocodone/Acetaminophen (Hydrocodone-Acetamin 7.5-325) 1 Each Tablet, 1 EACH PO Q4H PRN for PAIN-BREAKTHROUGH Prescribed by: ZORA KNIGHT on 05/28/21 1218 Hyoscyamine Sulfate (Levsin-Sl) 0.125 Mg Tab.subl, 0.25 MG SL Q4H Prescribed by: ISREAL REID on 06/20/212008 Nitrofurantoin Monohyd/M-Cryst (Macrobid 100 mg Capsule) 100 Mg Capsule, 1 TAB PO BID Prescribed by: ISREAL REID on 06/20/212008 Pantoprazole Sodium (Protonix) 40 Mg Tablet.dr, 40 MG PO DAILY Prescribed by: ISREAL REID on 06/20/212008 Review of Systems Review of Systems Constitutional: no symptoms reported Respiratory: No Symptoms Reported Cardiovascular: No Symptoms Reported Gastrointestinal: See HPI, Abdominal Pain, Constipated; Denies Diarrhea, Denies Nausea Genitourinary: No Symptoms Reported Musculoskeletal: no symptoms reported Skin: no symptoms reported Psychiatric/Neurological: No Symptoms Reported Endocrine: No Symptoms Reported Hematologic/Lymphatic: No Symptoms Reported Past Nlzhqgp-Aqpnky-Hffphk Hx Patient Social History Tobacco Use?: Yes (1 PPD) Tobacco type used: Cigarettes Smoking Status: Current Everyday Smoker Substance use?: No Alcohol Use?: Yes Alcohol Frequency: Once in a while Immunizations Up To Date Tetanus Booster (TDap): More than 5yrs First/Initial COVID19 Vaccinat: 01/2021 Second COVID19 Vaccination Armin: 01/2021 Seasonal Allergies Seasonal Allergies: Yes Past Medical History Surgery/Hospitalization HX: LEFT CARPAL TUNNEL SURGERY 05/03/21; LAP APPENDECTOMY 05/29/21 RIGHT CARPAL TUNNEL SURGERY 06/04/21 EGD 04/11/[address] 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 History: IUD, Tubal Ligation Sexually Transmitted Disease: No HIV/AIDS: No Genitourinary: No Gastrointestinal: Yes (GASTRITIS-S/P EGD 04/2020) Gastroesophageal Reflux, Chronic Constipation, Hiatal Hernia Musculoskeletal: Yes (CARPAL TUNNEL SURGERY) Endocrine: No HEENT: Yes (GLASSES) Loss of Vision: Denies Hearing Impairment: Denies Cancer: No Psychosocial: No Integumentary: No Blood Disorders: No Adverse Reaction/Blood Tranf: No (N/A) Family Medical History No Pertinent Family Hx Physical Exam Vital Signs Vital Signs - First Documented 06/20/21 18:38 Temp 36.5 Pulse 100 Resp 18 B/P (MAP) 135/87 (103) Pulse Ox 100 O2 Delivery Room Air Capillary Refill : Height/Weight/BMI Height: 5'5" Weight: 160lbs. oz. 72.161782ai; 26.53 BMI Method:Stated General Appearance: WD/WN, no apparent distress Respiratory: normal breath sounds, no respiratory distress, no accessory muscle use Cardiovascular: regular rate, rhythm, no murmur Gastrointestinal: normal bowel sounds, soft, no organomegaly, no pulsatile mass, tenderness (MILD LEFT MID TENDERNESS) Extremities: normal inspection Back: normal inspection, no CVA tenderness Neurologic/Psychiatric: firewood cutter II-XII nml as tested, no motor/sensory deficits, alert, normal mood/affect, oriented x 3 Skin: normal color, warm/dry; No rash Progress/Results/Core Measures Results/Orders Lab Results Laboratory Tests Test 06/20/21 18:45 06/20/21 19:40 Range/Units White Blood Count 11.8 H 4.3-11.0 10^3/uL Red Blood Count 4.38 3.80-5.11 10^6/uL Hemoglobin 11.2 L 11.5-16.0 g/dL Hematocrit 35 35-52 % Mean Corpuscular Volume 80 80-99 fL Mean Corpuscular Hemoglobin 26 25-34 pg Mean Corpuscular Hemoglobin Concent 32 32-36 g/dL Red Cell Distribution Width 16.3 H 10.0-14.5 % Platelet Count 480 H 130-400 10^3/uL Mean Platelet Volume 8.5 L 9.0-12.2 fL Immature Granulocyte % (Auto) 0 % Neutrophils (%) (Auto) 74 42-75 % Lymphocytes (%) (Auto) 17 12-44 % Monocytes (%) (Auto) 6 0-12 % Eosinophils (%) (Auto) 2 0-10 % Basophils (%) (Auto) 0 0-10 % Neutrophils # (Auto) 8.7 H 1.8-7.8 10^3/uL Lymphocytes # (Auto) 2.0 1.0-4.0 10^3/uL Monocytes # (Auto) 0.7 0.0-1.0 10^3/uL Eosinophils # (Auto) 0.2 0.0-0.3 10^3/uL Basophils # (Auto) 0.0 0.0-0.1 10^3/uL Immature Granulocyte # (Auto) 0.0 0.0-0.1 10^3/uL Sodium Level 139 135-145 MMOL/L Potassium Level 4.1 3.6-5.0 MMOL/L Chloride Level 103 98-107 MMOL/L Carbon Dioxide Level 24 21-32 MMOL/L Anion Gap 12 5-14 MMOL/L Blood Urea Nitrogen 12 7-18 MG/DL Creatinine 0.78 0.60-1.30 MG/DL Estimat Glomerular Filtration Rate 78 BUN/Creatinine Ratio 15 Glucose Level 101 70-105 MG/DL Calcium Level 9.5 8.5-10.1 MG/DL Corrected Calcium 9.3 8.5-10.1 MG/DL Total Bilirubin 0.2 0.1-1.0 MG/DL Aspartate Amino Transf (AST/SGOT) 14 5-34 U/L Alanine Aminotransferase (ALT/SGPT) 25 0-55 U/L Alkaline Phosphatase 48 40-136 U/L Total Protein 6.9 6.4-8.2 GM/DL Albumin 4.3 3.2-4.5 GM/DL Amylase Level 30 25-125 U/L Lipase 10 8-78 U/L Serum Test, Qualitative NEGATIVE NEGATIVE Urine Color YELLOW Urine Clarity SL CLOUDY Urine pH 6.0 5-9 Urine Specific [place] 1.020 1.016-1.022 Urine Protein NEGATIVE NEGATIVE Urine Glucose (UA) NEGATIVE NEGATIVE Urine Ketones NEGATIVE NEGATIVE Urine Nitrite NEGATIVE NEGATIVE Urine Bilirubin NEGATIVE NEGATIVE Urine Urobilinogen 0.2 < = 1.0 MG/DL Urine Leukocyte Esterase TRACE H NEGATIVE Urine RBC (Auto) TRACE-I NEGATIVE Urine RBC RARE /HPF Urine WBC 2-5 /HPF Urine Squamous Epithelial Cells 10-25 H /HPF Urine Crystals NONE /LPF Urine Bacteria FEW H /HPF Urine Casts NONE /LPF Urine Mucus SMALL H /LPF Urine Culture Indicated NO My Orders Orders - ISREAL REID DO Ed Iv/Invasive Line Start (06/20/21 18:45) Amylase (06/20/21 18:45) Cbc With Automated Diff (06/20/21 18:45) Comprehensive Metabolic Panel (06/20/21 18:45) Hcg,Qualitative Serum (06/20/21 18:45) Lipase (06/20/21 18:45) Ua Culture If Indicated (06/20/21 18:45) Ed Iv/Invasive Line Start (06/20/21 18:45) Lactated Ringers (Lr 1000 Ml Iv Solution (06/20/21 18:45) Ketorolac Injection (Toradol Injection) (06/20/21 19:00) Ct Abd/Pelvis Wo(Kidney Stone) (06/20/21 19:05) Abdomen/Kub 1[place] (06/20/21 19:05) Pantoprazole Tablet (Protonix Tablet) (06/20/21 20:15) Rx-Dicyclomine Capsule (Rx-Bentyl Capsul (06/20/21 20:09) Rx-Hyoscyamine Tab (Rx-Levsin Sl) (06/20/21 20:09) Rx-Nitrofurantoin [place] (Rx-Macrobid) (06/20/21 20:09) Medications Given in ED Current Medications Medications Dose Ordered Sig/Mike Route Start Time Stop Time Status Last Admin Dose Admin Ketorolac Tromethamine 30 mg ONCE ONCE IVP 06/20/21 19:00 06/20/21 19:01 DC 06/20/21 19:08 30 MG Lactated Ringer's 1,000 ml @ 0 mls/hr Q0M ONCE IV 06/20/21 18:45 06/20/21 18:46 DC 06/20/21 18:53 0 MLS/HR Vital Signs/I&O 06/20/21 06/20/21 18:38 20:17 Temp 36.5 Pulse 100 84 Resp 18 18 B/P (MAP) 135/87 (103) 122/72 Pulse Ox 100 98 O2 Delivery Room Air Room Air Progress Progress Note : Progress Note GIVEN IV FLUIDS AND TORADOL WITH IMPROVEMENT IN PAIN UNEVENTFUL ER STAY Diagnostic Imaging Comments CT ABDOMEN/PELVIS--PER RADIOLOGIST REPORT AT 1959 FINDINGS: There is mild basilar atelectasis and/or scarring similar to the previous study. Unenhanced images of liver, gallbladder, pancreas, spleen and adrenal glands are unremarkable. Unenhanced images of the kidneys are also unremarkable. Surgical sutures seen in the right lower quadrant. There is mild to moderate aortoiliac atherosclerotic calcification. Uterus contains a uterine device. Moderate amount of stool is seen throughout the colon. IMPRESSION: No evidence of acute abnormality or adverse change since previous study. Reviewed: Reviewed by Me Departure Impression Primary Impression: Left sided abdominal pain Additional Impressions: Constipation UTI (urinary tract infection) Disposition: HOME, SELF-CARE Condition: Stable Departure-Patient Inst. Decision time for Depature: 20:05 Referrals: MAYLIN CHEN MD NO,LOCAL PHYSICIAN (PCP) Primary Care Physician Patient Instructions: Constipation, Adult ED, Urinary Tract Infection, Adult ED, Abdominal Pain, Adult ED Add. Discharge Instructions: INCREASE YOUR CLEAR LIQUIDS--WATER, BROTH, JELLO, GATORADE TYLENOL AND MOTRIN NEEDED FOR PAIN INCREASE MIRALAX TO TWICE A DAY FOLLOW UP WITH DR. CHEN THIS WEEK FOR FURTHER CARE--CALL ON TUESDAY TO SCHEDULE APPOINTMENT KEEP YOUR APPOINTMENT THIS WEEK WITH [facility] B[employer]ER. All discharge instructions reviewed with patient and/or family. Voiced understanding. Scripts Nitrofurantoin Monohyd/M-Cryst (Macrobid 100 mg Capsule) 100 Mg Capsule 1 TAB PO BID, #20 CAP Prov: FRANKLINISREAL K DO 06/20/21 Pantoprazole Sodium (Protonix) 40 Mg Tablet.dr 40 MG PO DAILY, #15 TAB Prov: LUDIN REIDA K DO 06/20/21 Dicyclomine HCl (Dicyclomine HCl) 20 Mg Tablet 20 MG PO Q6H for Abdominal Pain, #20 TAB Prov: FRANKLINISREAL K DO 06/20/21 Hyoscyamine Sulfate (Levsin-Sl) 0.125 Mg Tab.subl 0.25 MG SL Q4H, #10 TAB Prov: LUDIN REIDA K DO 06/20/21 FRANKLINISREAL K DO Jun 20, 2021 18:51
[2021-06-20 18:55] LABS: BASOPHILS % (AUTO) 0 % (0-10); EOSINOPHILS # (AUTO) 0.2 10^3/uL (0.0-0.3); EOSINOPHILS % (AUTO) 2 % (0-10); HEMATOCRIT 35 % (35-52); HEMOGLOBIN 11.2 g/dL (11.5-16.0); LYMPHOCYTES % (AUTO) 17 % (12-44); MEAN CORPUSCULAR HEMOGLOBIN 26 pg (25-34); MEAN CORPUSCULAR HGB CONC 32 g/dL (32-36); MEAN CORPUSCULAR VOLUME 80 fL (80-99); MEAN PLATELET VOLUME 8.5 fL (9.0-12.2); MONOCYTES # (AUTO) 0.7 10^3/uL (0.0-1.0); MONOCYTES % (AUTO) 6 % (0-12); NEUTROPHILS # (AUTO) 8.7 10^3/uL (1.8-7.8); NEUTROPHILS % (AUTO) 74 % (42-75); PLATELET COUNT 480 10^3/uL (130-400); WHITE BLOOD COUNT 11.8 10^3/uL (4.3-11.0)
[2021-06-20] MEDS ORDERED: KETOROLAC 30 MG/ML VIAL IVP ONE (19:00)
[2021-06-20 19:07] LABS: ALBUMIN 4.3 GM/DL (3.2-4.5); POTASSIUM 4.1 MMOL/L (3.6-5.0)
[2021-06-20 19:08] LABS: CALCIUM 9.5 MG/DL (8.5-10.1)
[2021-06-20 19:10] LABS: TOTAL PROTEIN 6.9 GM/DL (6.4-8.2)
[2021-06-20 19:11] LABS: BILIRUBIN,TOTAL 0.2 MG/DL (0.1-1.0)
[2021-06-20 19:13] LABS: CREATININE SERUM 0.78 MG/DL (0.60-1.30)
[2021-06-20 19:48] LABS: BILIRUBIN,URINE NEGATIVE (NEGATIVE); COLOR,URINE YELLOW; GLUCOSE, URINE (UA) NEGATIVE (NEGATIVE); KETONES,URINE NEGATIVE (NEGATIVE); LEUKOCYTE ESTERASE ,URINE TRACE (NEGATIVE); NITRITE,URINE NEGATIVE (NEGATIVE); PROTEIN,URINE NEGATIVE (NEGATIVE)
[2021-06-20 19:53] LABS: CLARITY,URINE SL CLOUDY
[2021-06-20 19:55] LABS: BACTERIA,URINE FEW /HPF; RBC,URINE RARE /HPF
--- NOTE | 2021-06-20 19:57 | Diagnostic Imaging Report ---
PROCEDURE: CT urinary tract, rule out kidney stone. TECHNIQUE: Multiple contiguous axial images were obtained through the abdomen and pelvis without the use of intravenous contrast. Auto Exposure Controls were utilized during the CT exam to meet ALARA standards for radiation dose reduction. INDICATION: Flank pain. COMPARISON: 06/16/2021. FINDINGS: There is mild basilar atelectasis and/or scarring similar to the previous study. Unenhanced images of liver, gallbladder, pancreas, spleen and adrenal glands are unremarkable. Unenhanced images of the kidneys are also unremarkable. Surgical sutures seen in the right lower quadrant. There is mild to moderate aortoiliac atherosclerotic calcification. Uterus contains a uterine device. Moderate amount of stool is seen throughout the colon. IMPRESSION: No evidence of acute abnormality or adverse change since previous study. Dictated by: Dictated on workstation # [id number]
[2021-06-20] MEDS ORDERED: PANT40TA2 PO ×2 (20:02→20:09)
[2021-06-20] MEDS ORDERED: NITR-65 PO ×2 (20:02→20:09)
[2021-06-20] MEDS ORDERED: DICY20TA10 PO ×2 (20:02→20:09)
[2021-06-20] MEDS ORDERED: HYOS0.1283 SL ×2 (20:02→20:09)
[2021-06-20] MEDS ORDERED: RX-HYOSCYAMINE 0.125 MG SL (LEVSIN) PPK#6 SL STA (20:09)
[2021-06-20] MEDS ORDERED: RX-DICYCLOMINE 10 MG (BENTYL) CAP PPK#4 PO STA (20:09)
[2021-06-20] MEDS ORDERED: RX-NITROFURANTOIN 100 MG (MACROBID) CAP PPK#2 PO STA (20:09)
--- NOTE | 2021-06-20 20:13 | Diagnostic Imaging Report ---
INDICATION: Abdominal pain. EXAMINATION: Supine image of the abdomen was obtained. COMPARISON: Study of 09/16/2016. FINDINGS: There is moderate to large amount of stool throughout the colon. Intrauterine device is present. There is no evidence of pneumoperitoneum or pneumatosis. No transition point is seen to indicate a bowel obstruction. IMPRESSION: Findings suggest constipation without other evidence of acute abnormality. Dictated by: Dictated on workstation # [id number]
[2021-06-20] MEDS ORDERED: PANTOPRAZOLE 40 MG (PROTONIX) TAB PO ONE (20:15)
[2021-06-20 20:17] VITALS: BP 122/72
== END 2021-06-20 20:17 | disposition home or self-care (01) ==
LOC: EDUNIT# 18:31 → ER 18:33
DX: K59.00 Constipation, unspecified (principal); N39.0 Urinary tract infection, site not specified; K21.9 Gastro-esophageal reflux disease without esophagitis; F17.210 Nicotine dependence, cigarettes, uncomplicated
CPT/HCPCS: 36415; 74018; 74176; 80053; 81000; 82150; 83690; 84703; 85025; 96361; 96374

== ENCOUNTER 2022-03-10 09:46 | Outpatient (CLI) | payer BC ==
[~2022-03-10] VITALS: Ht 170.2 cm; Wt 73.1 kg
[~2022-03-10 09:46] MED LIST changes: -ALBU90AE2; +ALBU90AE2 IH; +DICY20TA PO; +HYOS0.1283 SL; +NITR-65 PO; +PANT40TA2 PO
[2022-03-10] MEDS ORDERED: ALPR0.5T7 PO (11:46)
== END 2022-03-10 11:48 | disposition home or self-care (01) ==
LOC: PREOP 09:46
PROVIDERS: ATTEND Surgery
DX: Z01.818 Encounter for other preprocedural examination (principal)

== ENCOUNTER 2022-03-12 11:55 | Day surgery (SDC) | payer BC ==
[~2022-03-12] VITALS: Ht 170 cm; Wt 73.1 kg
[~2022-03-12 11:55] MED LIST changes: +ALPR0.5T7 PO
[2022-03-12 12:00] VITALS: BP 142/79
--- NOTE | 2022-03-12 12:04 | Progress Note-Pre Operative ---
Pre-Operative Progress Note H&P Reviewed The H&P was reviewed, patient examined and no changes noted. Date Seen by Provider: Mar 12, 2022 Time Seen by Provider: 12:00 Date H&P Reviewed: Mar 12, 2022 Time H&P Reviewed: 12:00 Pre-Operative Diagnosis: anemia, apthous ulcer MAYLIN CHEN MD Mar 12, 2022 12:04
[2022-03-12] MEDS ORDERED: LACTATED RINGERS 1,000 ML IV STA (12:05)
[2022-03-12] MEDS ORDERED: PANT40TA2 PO (12:06)
--- NOTE | 2022-03-12 12:06 | Discharge Inst-Surgical ---
D/C Lap Instructions-KIDO New, Converted, or Re-Newed RX: RX on Chart Follow Up Activity as tolerated High Fiber Diet 25g or more per day Avoid Alcohol, Caffeine, Spicy [place] and Acid foods. Drink 64 fluid oz or more of fluids per day. Symptoms to Report: Fever over 101 degree F, Nausea/Vomiting If any problems/questions: Contact your physician or go to Emergency Room MAYLIN CHEN MD Mar 12, 2022 12:06
[2022-03-12] MEDS ORDERED: ONDANSETRON 4 MG/2 ML (SDV) Z0FRAN IVP PRN (12:15)
[2022-03-12] MEDS ORDERED: HURRICAINE EXT TUBE (BENZOCAINE) XX PRN (12:15)
[2022-03-12] MEDS ORDERED: ONDANSETRON 4 MG (ZOFRAN) ORAL DISSOLVE TAB PO PRN (12:15)
[2022-03-12] MEDS ORDERED: LIDOCAINE JELLY 2% 6 ML SYRINGE MM PRN (12:15)
[2022-03-12] MEDS ORDERED: MIDAZOLAM 2 MG/2 ML (VERSED) VIAL ONE (13:14)
[2022-03-12] MEDS ORDERED: PROPOFOL INJECTION 50 ML IV ONE ×2 (13:14→13:38)
[2022-03-12 14:15] VITALS: BP 96/50
[2022-03-12 14:18] VITALS: BP 95/63
--- NOTE | 2022-03-12 14:19 | Anesthesia-General Post-Op ---
MAC Patient Condition Mental Status/LOC: Same as Preop Cardiovascular: Satisfactory Nausea/Vomiting: Absent Respiratory: Satisfactory Pain: Controlled Complications: Absent Post Op Complications Complications None Follow Up Care/Instructions Patient Instructions None needed. Anesthesiology Discharge Order Discharge Order Patient is doing well, no complaints, stable vital signs, no apparent adverse anesthesia problems. No complications reported per nursing. JANUARY BALDERAS CRNA Mar 12, 2022 14:19
[2022-03-12 14:35] VITALS: BP 106/72
--- NOTE | 2022-03-12 15:09 | Progress Note-Post Operative ---
Post-Operative Progess Note Surgeon (s)/Flash Welder (s) Surgeon MAYLIN CHEN MD Flash Welder: none Pre-Operative Diagnosis anemia, apthous ulcer Post-Operative Diagnosis reflux esophagitis(grade B), small HH(2cm), moderate gastritis. mild chronic stage 2 ext and int hemorrhoids, no mucosal inflammatory changes. Procedure & Operative Findings Date of Procedure 03/12/22 Procedure Performed/Findings EGD with bx. colonoscopy with bx. Anesthesia Type mac Estimated Blood Loss Estimated blood loss (mL): minimal Specimens/Packing Specimens Removed ge jxn, antrum, cecum, asc, rectum. MAYLIN HCEN MD Mar 12, 2022 15:09
--- NOTE | 2022-03-13 00:43 | OPERATIVE REPORT ---
DATE OF SERVICE: 03/12/2022 PREOPERATIVE DIAGNOSES: Abscess oropharyngeal ulcers, anemia. POSTOPERATIVE DIAGNOSES: Reflux esophagitis, [place] grade B, small hiatal hernia 2 to 2.5 cm in size, moderate severity gastritis, chronic stage II external and internal hemorrhoids. No mucosal inflammatory changes. PROCEDURE: EGD with biopsy, colonoscopy with biopsy. SURGEON: Maylin Chen MD ANESTHESIA: Monitored anesthesia care. ESTIMATED BLOOD LOSS: Minimal. FINDINGS: Reflux esophagitis, [place] grade B, small hiatal hernia 2 to 2.5 cm in size, moderate severity gastritis, chronic stage II external and internal hemorrhoids. No mucosal inflammatory changes. DISPOSITION: The patient tolerated the procedure well. INDICATIONS: The patient is a 52-year-old female known to us. She developed lower abdominal pain and had a CT scan performed, which did show appendicitis and she underwent an appendectomy on 05/28/2021. She states that she has been having sores in her mouth and was treated medically; however, these did persist. She also did have some laboratory work that did also show some vitamin deficiencies and she was also found to have iron deficiency anemia. DESCRIPTION OF PROCEDURE: The patient was brought to the endoscopy suite, laid in the left lateral decubitus position. After adequate IV pain and sedative medications and monitored anesthesia care, the mouthpiece was applied. The endoscope was placed in the mouth, visualizing the pharynx and hypopharyngeal region. Vocal cords, epiglottis and vallecula identified and appeared to be normal. The endoscope was then gently intubated the esophageal opening and esophagus insufflated. The endoscope was then advanced to the first, second and third portion of esophagus at the level of the GE junction, reflux esophagitis, [place] grade B identified. No ulcers or strictures were identified. A biopsy was taken with forceps with visualization of good hemostasis. The endoscope was then advanced into the stomach and endoscope retroflexed, visualizing a small hiatal hernia approximately 2 cm in size. There was a moderate severity gastritis with some mild erosions of the antrum; however, no active bleeding. A biopsy was taken of the antrum to rule out H. pylori with visualization of good hemostasis. The endoscope was then advanced to the pylorus and the first and second portion of the duodenum, which appeared normal with no ulcerations or any active bleeding sources. The endoscope was then slowly withdrawn while taking a second look and suctioning of residual air with no additional findings. A digital rectal examination was performed, which revealed chronic stage II external and internal hemorrhoids, not actively edematous nor inflamed and no bleeding. Normal sphincter tone was felt and there were no palpable masses. The endoscope was then intubated and anus and rectum gently insufflated. The endoscope was then advanced to the valves of [place] of the rectum with no polyps or any neoplasms identified. There was also no mucosal inflammatory changes to indicate any inflammatory bowel disease. We then proceeded through the sigmoid colon, descending colon, transverse, ascending colon to the cecum, which were all normal. There were no mucosal inflammatory changes identified anywhere throughout the rectum or colon. Random biopsy was taken of the cecum, ascending colon as well as the rectum with forceps with visualization of good hemostasis. The endoscope was then slowly withdrawn while taking a second look and suctioning of residual air with no additional findings. The patient tolerated the procedure well. We will recommend the necessary lifestyle and dietary accommodation including small and more frequent meals, avoiding to eating at night as well as head elevation while lying supine. She also needs to avoid caffeinated beverages, spicy, greasy and acidic foods. Moderation of alcohol and smoking with also be beneficial. We will also start her on Protonix 40 mg daily. Job ID: [id number] DocumentID: [id number] Dictated Date: 03/12/2022 14:19:49 Design Inserter Date: 03/13/2022 00:42:24 Dictated By: MAYLIN CHEN MD
== END 2022-03-12 14:54 | disposition home or self-care (01) ==
LOC: ENDO 11:55
PROVIDERS: ATTEND Surgery
DX: K21.00 Gastro-esophageal reflux disease with esophagitis, without bleeding (principal); K29.50 Unspecified chronic gastritis without bleeding; K44.9 Diaphragmatic hernia without obstruction or gangrene; K64.1 Second degree hemorrhoids; D50.9 Iron deficiency anemia, unspecified
CPT/HCPCS: 84703